=== PATIENT | female | born 1960 | race Caucasian/White ===

== ENCOUNTER → 2017-11-10 13:06 | Outpatient (CLI) | payer BC, SELFPAY ==
--- NOTE | 2017-11-10 | XR_ITS ---
XR hand RT min 3V Ordering Physician: Trenton Morales MD Patient Age: 57 years: Female HISTORY: ITS.REASON: INJURY TO RIGHT HAND Fall injury bruising third metacarpal and third phalanx. TECHNIQUE: 3 views right hand COMPARISON :None available FINDINGS Right hand intact with no fracture or nor dislocation. Borderline narrowing is seen at the PIP and DIP joints joint of the third and fourth and fifth fingers. . Metacarpals intact. MCP joints intact. No erosions. Bones well mineralized. . If there is pain at the right wrist I would suggest a dedicated right wrist series. I suspect current appearance is due to projection but difficult to exclude proximal position of the pisiform bone or variation/ & irregularity in the triquetrum posterior. IMPRESSION: - Right hand intact. No acute fracture or findings. Borderline narrowing DIP and PIP joints of the third fourth and fifth fingers. These images were designed evaluate the right hand and with this there is slight distortion at the wrist. However if pain at the wrist suggest dedicated right wrist series.
== END ==
PROVIDERS: PCP Internal Medicine Adolescent Medicine; Visit Provider Internal Medicine Adolescent Medicine
DX: S69.81XA Other specified injuries of right wrist, hand and finger(s), initial encounter (principal)
CPT/HCPCS: 73130

== ENCOUNTER → 2018-03-03 22:01 | Outpatient (CLI) | payer BC, SELFPAY ==
--- NOTE | 2018-03-03 23:15 | XR_ITS ---
XR elbow LT min 3V HISTORY: Posttraumatic pain ITS.REASON: SP FALL PAIN LEFT ELBOW ORDERING PHYSICIAN: Trenton Morales MD PATIENT AGE: 57 years COMPARISON: None FINDINGS: No fracture or dislocation. No displaced fat pad. Minimal hypertrophic changes are present coronoid process. IMPRESSION: No acute finding
== END ==
PROVIDERS: PCP Internal Medicine Adolescent Medicine; Visit Provider Internal Medicine Adolescent Medicine
DX: M25.522 Pain in left elbow (principal)
CPT/HCPCS: 73080

== ENCOUNTER → 2018-03-17 22:10 | Outpatient (CLI) | payer BC, SELFPAY ==
--- NOTE | 2018-03-17 | XR_ITS ---
XR chest 2V HISTORY: ITS.REASON: COUGH, SOB ORDERING PHYSICIAN: Antonio Garcia MD PATIENT AGE: 57 years COMPARISON: 02/06/2016 FINDINGS: The cardiomediastinal silhouette and pulmonary vascularity are within normal limits. The lungs are clear without infiltrates, suspicious nodules, or pleural effusions. No acute bony abnormalities. IMPRESSION: Negative chest, no acute finding
== END ==
PROVIDERS: PCP Internal Medicine Adolescent Medicine; Visit Provider Emergency Medicine
DX: R05 Cough (principal); R06.02 Shortness of breath
CPT/HCPCS: 71046

== ENCOUNTER → 2018-04-09 02:57 | Outpatient (CLI) | payer BC, SELFPAY ==
[2018-04-09 03:53] LABS: Anion Gap 10.3 mEq/L (5-15); Blood Urea Nitrogen 14 mg/dL (7-18); Calcium 8.8 mg/dL (8.5-10.1); Carbon Dioxide 26 mmol/L (21.0-32.0); Chloride 97 mmol/L (98-107); Creatinine,Serum 0.88 mg/dL (0.55-1.02); Estimated Glomerular Filt Rate 66 ml/min (>60); GFR (African American) 80 ML/MIN (>60); Glucose 77 mg/dL (74-106); Potassium 3.3 mmoL/L (3.5-5.1); Sodium 130 mmol/L (136-145)
[2018-04-10 09:11] LABS: Vitamin D 25 Hydroxy 34.6 ng/mL (30.0-100.0)
[2018-04-11 11:59] LABS: Vitamin B12 461 pg/mL (232-1245)
== END ==
PROVIDERS: Nurse Practitioner Family; PCP Internal Medicine Adolescent Medicine; Visit Provider Internal Medicine Adolescent Medicine
DX: R25.2 Cramp and spasm (principal); R53.83 Other fatigue
CPT/HCPCS: 36415; 80048; 82607; 82652; 83735

== ENCOUNTER → 2018-04-24 10:44 | Outpatient (CLI) | payer BC, SELFPAY ==
[2018-04-24 12:58] LABS: Anion Gap 11.8 mEq/L (5-15); Blood Urea Nitrogen 12 mg/dL (7-18); Carbon Dioxide 25 mmol/L (21.0-32.0); Chloride 102 mmol/L (98-107); Creatinine,Serum 0.74 mg/dL (0.55-1.02); Potassium 3.8 mmoL/L (3.5-5.1); Sodium 135 mmol/L (136-145)
[2018-04-24 12:59] LABS: Calcium 9.1 mg/dL (8.5-10.1); Estimated Glomerular Filt Rate 80 ml/min (>60); GFR (African American) 97 ML/MIN (>60); Glucose 84 mg/dL (74-106)
== END ==
PROVIDERS: Visit Provider Nurse Practitioner Family
DX: R35.0 Frequency of micturition (principal); E87.6 Hypokalemia
CPT/HCPCS: 36415; 80048; 87086; 87088; 87186

== ENCOUNTER → 2019-01-26 08:58 | Outpatient (CLI) | payer BC, SELFPAY ==
[2019-01-26 09:01] LABS: Adenovirus F 40/41, stool Not Detected (NotDetected); Campylobacter Not Detected (NotDetected); Clostridium Difficile A/B, PCR Not Detected (NotDetected); Cryptosporidium Not Detected (NotDetected); Cyclospora Cayetanesis Not Detected (NotDetected); Entamoeba histolytica Not Detected (NotDetected); Enteroaggregative E coli Not Detected (NotDetected); Enteropathogenic E coli Not Detected (NotDetected); Enterotoxigenic E coli Not Detected (NotDetected); Giardia lamblia Not Detected (NotDetected); Norovirus Not Detected (NotDetected); Plesimonas Shigalloides, PCR Not Detected (NotDetected); Rotavirus A Not Detected (NotDetected); Salmonella, PCR Not Detected (NotDetected); Sapovirus Not Detected (NotDetected); Shiga-like toxin E coli Not Detected (NotDetected); Shigella Enterovasive E coli Not Detected (NotDetected); Vibrio Cholerae Not Detected (NotDetected); Vibrio, PCR Not Detected (NotDetected); Yersinia Entercolitica, PCR Not Detected (NotDetected)
[2019-01-26 10:17] LABS: Basophils % 0.4 % (0.1-2.0); Eosinophils # 0.1 K/mm3 (0.0-0.4); Eosinophils % 1.8 % (0.1-12.0); Hematocrit 38.9 % (37.0-47.0); Hemoglobin 13.1 g/dL (12.2-16.2); Lymphocytes # 2.2 K/mm3 (0.7-4.5); Lymphocytes % 48.2 % (10-50); Mean Corpuscular HGB Conc 33.7 g/dL (31.8-35.4); Mean Corpuscular Hemoglobin 28.8 pg (27.0-31.2); Mean Corpuscular Volume 85.3 fl (81-99); Monocytes # 0.5 K/mm3 (0.1-1.0); Monocytes % 9.9 % (1.7-9.3); Neutrophils # 1.9 K/mm3 (1.8-7.8); Neutrophils % 39.8 % (37.0-80.0); Platelet Count 325 K/mm3 (142-424); Red Blood Count 4.56 M/mm3 (4.20-5.40); Red Cell Distribution Width 13.4 % (11.5-17.5); White Blood Count 4.7 K/mm3 (4.8-10.8)
[2019-01-26 11:01] LABS: Alanine Aminotransferase 30 U/L (12-78); Albumin/Globulin Ratio 1.2 (1.1-1.8); Alkaline Phosphatase 91 U/L (46-116); Anion Gap 13.9 mEq/L (5-15); Aspartate Amino Transferase 22 U/L (15-37); Bilirubin,Total 0.6 mg/dL (0.2-1.0); Blood Urea Nitrogen 9 mg/dL (7-18); Carbon Dioxide 26 mmol/L (21.0-32.0); Chloride 103 mmol/L (98-107); Creatinine,Serum 0.81 mg/dL (0.55-1.02); Estimated Glomerular Filt Rate 72 ml/min (>60); GFR (African American) 87 ML/MIN (>60); Globulin 3.3 gm/dl (1.3-3.2); Glucose 82 mg/dL (74-106); Potassium 3.9 mmoL/L (3.5-5.1); Sodium 139 mmol/L (136-145); Total Protein,Serum 7.3 gm/dL (6.4-8.2)
[2019-01-26 13:37] LABS: Astrovirus Detected (NotDetected)
== END ==
PROVIDERS: Visit Provider Nurse Practitioner Family
DX: R19.7 Diarrhea, unspecified (principal); Z87.19 Personal history of other diseases of the digestive system
CPT/HCPCS: 36415; 80053; 85025; 87507

== ENCOUNTER 2019-01-28 03:39 | Observation (INO) ==
[2019-01-28 04:16] LABS: Basophils % 0.3 % (0.1-2.0); Eosinophils # 0.2 K/mm3 (0.0-0.4); Eosinophils % 2.9 % (0.1-12.0); Hematocrit 35.3 % (37.0-47.0); Hemoglobin 11.7 g/dL (12.2-16.2); Lymphocytes % 53.1 % (10-50); Mean Corpuscular HGB Conc 33.3 g/dL (31.8-35.4); Mean Corpuscular Hemoglobin 28.4 pg (27.0-31.2); Mean Corpuscular Volume 85.4 fl (81-99); Monocytes # 0.3 K/mm3 (0.1-1.0); Monocytes % 5.9 % (1.7-9.3); Neutrophils # 2.1 K/mm3 (1.8-7.8); Neutrophils % 37.8 % (37.0-80.0); Platelet Count 312 K/mm3 (142-424); Red Blood Count 4.13 M/mm3 (4.20-5.40); Red Cell Distribution Width 13.3 % (11.5-17.5); White Blood Count 5.7 K/mm3 (4.8-10.8)
[2019-01-28 04:29] LABS: Albumin Level 3.9 gm/dL (3.4-5.0); Albumin/Globulin Ratio 1.1 (1.1-1.8); Bilirubin,Total 0.4 mg/dL (0.2-1.0); C-Reactive Protein 1.3 mg/L (0.0-0.9); Calcium 8.3 mg/dL (8.5-10.1); Globulin 3.6 gm/dl (1.3-3.2); Total Protein,Serum 7.5 gm/dL (6.4-8.2)
[2019-01-28 04:45] LABS: Microscopic, Urine URINE MICROSCOPIC (MICROSCOPIC)
[2019-01-28 04:46] LABS: Appearance,Urine CLEAR (Clear); Bilirubin,Urine Negative (Negative); Blood, Urine Negative (Negative); Color,Urine ORANGE (Yellow); Glucose,Urine (UA) TRACE (Negative); Ketones,Urine TRACE (Negative); Leukocyte Esterase,Urine TRACE (Negative); Protein,Urine 2+ (Negative); Specific Gravity, Urine 1.015 (1.005-1.030); Urobilinogen,Urine >=8.0 EU/dl (0.2)
--- NOTE | 2019-01-28 04:48 | Emergency Department Note ---
ED Disposition Clinical Impression: Enteritis, Hypokalemia Disposition: Admitted as Observation Condition on Discharge: Good Instructions: DI for Diarrhea and Traveler's Diarrhea -- Adult, DI for Diarrhea and Traveler's Diarrhea -- Child, DI for Nausea -- Adult, DI for Nausea -- Child Referrals: Trenton Morales MD [Primary Care Provider] - - Critical Care Critical Care Time: No Attestation: On 01/28/19, the high probability of a clinically significant, sudden or life threatening deterioration of the following system(s) required my full and direct attention, intervention and personal management. The time I documented below is in addition to time spent performing reported procedures but includes the following listed in this critical care notation. Medical Decision Making - Medical Records Medical records reviewed: Yes: I reviewed the patient's medical records. - Al Inquiry Pt receiving controlled substance: No Vital Signs: 01/28/19 03:47 01/28/19 04:44 01/28/19 06:00 Temperature 98.2 F Temperature Source Oral Pulse Rate [Right Brachial] 86 70 79 Respiratory Rate 15 12 Blood Pressure [Right Arm] 112/45 L 137/70 148/75 H Blood Pressure Mean [Right Arm] 67 92 99 Blood Pressure Source [Right Arm] Automatic Cuff Automatic Cuff Blood Pressure Position [Right Arm] Sitting Supine 02 Sat by Pulse Oximetry 96 96 97 Oxygen Delivery Method Room Air Room Air 01/28/19 07:51 Temperature Temperature Source Pulse Rate [Right Brachial] 93 H Respiratory Rate 16 Blood Pressure [Right Arm] 119/57 L Blood Pressure Mean [Right Arm] 77 Blood Pressure Source [Right Arm] Automatic Cuff Blood Pressure Position [Right Arm] Supine 02 Sat by Pulse Oximetry 96 Oxygen Delivery Method - Lab Data Lab results reviewed: Yes: I reviewed the patient's lab results. Lab Results 01/28/19 04:00: WBC 5.7, RBC 4.13 L, Hgb 11.7 L, Hct 35.3 L, MCV 85.4, MCH 28.4, MCHC 33.3, RDW 13.3, Plt Count 312, MPV 7.0 L, Neut % (Auto) 37.8, Lymph % (Auto) 53.1 H, [place] % (Auto) 5.9, Eos % (Auto) 2.9, Baso % (Auto) 0.3, Neut # (Auto) 2.1, Lymph # (Auto) 3.0, [place] # (Auto) 0.3, Eos # (Auto) 0.2, Baso # (Auto) 0.0, Total Counted 100, Neutrophils % (Manual) 44, Lymphocytes % (Manual) 53 H, Eosinophils % (Manual) 2, Basophils % (Manual) 1.0, Platelet Estimate Normal, RBC Morphology Normal, ESR 15 01/28/19 04:00: Sodium 138, Potassium 3.0 L, Chloride 105, Carbon Dioxide 24, Anion Gap 12.0, BUN 10, Creatinine 0.84, Estimated Creat Clear 81, Estimated GFR 69, Est GFR ( Amer) 84, Glucose 91, Calcium 8.3 L, Total Bilirubin 0.4, AST 39 H D, ALT 57 D, Alkaline Phosphatase 97, C-Reactive Protein 1.3 H, Total Protein 7.5, Albumin 3.9, Globulin 3.6 H, Albumin/Globulin Ratio 1.1, Amylase 54, Lipase 140 01/28/19 04:00: Lactate 0.6 01/28/19 04:40: Urine Color [place], Urine Appearance Clear, Urine pH 5.0, Ur Specific [place] 1.015, Urine Protein 2+, Urine Glucose (UA) Trace, Urine Ketones Trace, Urine Blood Negative, Urine Nitrate Positive, Urine Bilirubin Negative, Urine Urobilinogen >=8.0, Ur Leukocyte Esterase Trace, Urine RBC Occasional, Urine WBC 3-5, Ur Squamous Epith Cells 3-5, Urine Bacteria 1+ Result diagrams: 01/28/19 04:00 01/28/19 04:00 Orders (Tests/Meds): ED MEDICATIONS Discontinued Medications Generic Name Dose Route Start Last Admin Trade Name Jacquelin PRN Reason Stop Dose Admin Sodium Chloride 1,000 mls @ 999 mls/hr 01/28/19 04:00 01/28/19 04:14 Sod Chlor 0.9% 1000ml Bag IV 01/28/19 05:00 999 mls/hr .Q1H1M DELROY Administration Sodium Chloride 1,000 mls @ 999 mls/hr 01/28/19 06:00 01/28/19 05:53 Sod Chlor 0.9% 1000ml Bag IV 01/28/19 07:00 999 mls/hr .Q1H1M DELROY Administration Ioversol 75 ml 01/28/19 06:25 01/28/19 06:27 Rad-Optiray 350 100ml Vial IV 01/28/19 06:26 75 ml ONCE ONE Administration Protocol Ketorolac Tromethamine 30 mg 01/28/19 04:26 01/28/19 04:28 Toradol 30mg/Ml Vial IV 01/28/19 04:27 30 mg ONCE ONE Administration Morphine Sulfate 4 mg 01/28/19 06:32 01/28/19 06:42 Morphine 4mg/Ml Syringe IV 01/28/19 06:33 4 mg ONCE ONE Administration Ondansetron HCl 4 mg 01/28/19 04:13 01/28/19 04:14 Zofran 4mg/2ml Vial IV 01/28/19 04:14 4 mg ONCE ONE Administration Ondansetron HCl 4 mg 01/28/19 06:32 01/28/19 06:42 Zofran 4mg/2ml Vial IV 01/28/19 06:33 4 mg ONCE ONE Administration Sodium Chloride 10 ml 01/28/19 06:25 01/28/19 06:27 Rad-Saline Flush 10ml Syringe IV 01/28/19 06:26 10 ml ONCE ONE Administration ORDERS Category Date Time Status Diarrhea 23 Panel, PCR Stat Lab 01/28/19 03:57 Ordered Blood Culture Stat Micro 01/28/19 04:00 Received - CT Data CT Scan: Abdomen, Pelvis Time Received: 07:[address] Reviewed: Yes: I have viewed the radiologist's interpretation Preliminary Findings: Normal/NAD - Physician Consults Physician Consulted: mary Reason -: Admission Nausea/Vomiting/Diarrhea HPI - General Chief complaint: Nausea/Vomiting/Diarrhea Stated complaint: watery diarrhea X4days Time Seen by Provider: 01/28/19 04:46 Mode of Arrival: Ambulatory Source of Information: Patient, Medical Record Limitations: No Limitations Description of Symptoms (Recalled from ER Triage Doc. by RN): diarrhea since saturday, went to primary care provider on saturday and pt reports astrovirus. pt c/o nausea and no vomiting. abdominal cramping - History of Present Illness HPI Narrative: diarrhea with crampy abd pain with known mariza virus infection MD complaint: nausea, diarrhea, abdominal pain Onset (ago): day(s) Associated Abdominal Pain: Yes Location of pain: periumbilical Associated symptoms: denies other symptoms - Related Data Home Medications Medication Instructions Recorded Confirmed conjugated estrogens 0.625 mg 0.625 mg PO DAILY 90 Days #90 tab 06/25/18 01/28/19 tablet omeprazole 20 mg capsule,delayed 20 mg PO DAILY 90 Days #90 cap 06/25/18 01/28/19 release potassium chloride ER 10 mEq 10 meq PO DAILY 30 Days #30 tab 06/25/18 01/28/19 tablet,extended release sertraline 100 mg tablet 100 mg PO DAILY 90 Days #90 tab 06/25/18 01/28/19 tolterodine ER 4 mg 4 mg PO HS 90 Days #90 cap 06/25/18 01/28/19 capsule,extended release 24 hr Lidocaine [Topicaine] 1 applic TOPICAL BID 06/30/18 01/28/19 Dicyclomine HCl [Bentyl 10mg 10 mg PO DAILY 01/28/19 01/28/19 capsule] Magnesium Oxide [Magnesium] 200 mg PO DAILY 01/28/19 01/28/19 Metoclopramide HCl [Reglan 10mg 10 mg PO DAILY 01/28/19 01/28/19 Tab] Promethazine HCl [Phenergan 25mg 25 mg PO QIDP PRN 01/28/19 01/28/19 tab] Simethicone 180 mg PO BID 01/28/19 01/28/19 Allergies Allergy/AdvReac Type Severity Reaction Status Date / Time gentamicin [GENTAMICIN] Allergy Intermediate I-RASH Verified 06/30/18 06:12 erythromycin base Allergy Unknown Verified 06/30/18 06:12 [From Tee-Tab] Sulfa (Sulfonamide Allergy Unknown Verified 06/30/18 06:12 Antibiotics) trimethoprim Allergy Unknown Verified 06/30/18 06:12 latex Allergy Verified 06/30/18 06:19 Penicillins Allergy Verified 06/30/18 06:12 [facility] History - Hepatitis A Screen Drug use history?: No High risk sexual behaviors?: No History of sexually transmitted infection?: No Currently employed?: No Childcare worker?: No Do you have indoor plumbing?: Yes Do you have electricity?: Yes Attestation statement:: This patient has been screened for Hepatitis A risk factors. I have reviewed the patient's past medical history: Yes Medical History: Reports:: Gastroesophageal Reflux Disease(GERD), Hyperlipidemia, Kidney Stones Other Medical History: Reports: Fibromyalgia Other Surgeries: Yes: Hysterectomy-Total, Tubal Ligation, Other Amputation: No Fractures: No - Social History Smoking Status: Former smoker Alcohol Intake: never Substance Use Type: denies use Occupational Status: employed Housing: house - Psychiatric History Expresses thoughts of harming self/others: None Suicide Plan Description: No Plan Family Hx:: Cancer, Hypertension, Coronary Artery Disease, Heart Attack Comment: Father-[place] at 64 ROS Obtained: Yes All systems reviewed & no additional complaints - Constitutional Constitutional: Denies fever(s) - Eyes Eyes: Denies change in vision - ENT Ears, Nose, Mouth, and Throat: Denies sinus pain - Cardiovascular Cardiovascular: Denies chest pain - Respiratory Respiratory: No cough - Gastrointestinal Gastrointestingal: Reports: diarrhea. Denies: abdominal pain, vomiting - Genitourinary Female Genitourinary: Denies hematuria - Musculoskeletal Musculoskeletal: Denies joint pain - Integumentary/Breasts Skin/Breast: Denies rash - Neurologic Neurologic: Denies seizure-like activity Physical Exam - General General appearance: in no apparent distress - Head Head exam: normocephalic - Eye Eye exam: Present: PERRL, EOMI. Absent: scleral icterus - ENT ENT exam: Present: mucous membranes dry - Neck Neck exam: Present: trachea midline - Respiratory Respiratory exam: Absent: respiratory distress - Cardiovascular Cardiovascular exam: Present: regular rate - Abdominal Exam Abdominal exam: Present: soft, tenderness - Extremities Exam Extremities exam: Absent: calf tenderness - Neurological Exam Neurological exam: Present: alert, CN II-XII intact - Psychiatric Psychiatric exam: Present: normal affect - Skin Skin exam: Absent: rash
[2019-01-28 05:27] LABS: Erythrocyte Sedimentation Rate 15 mm/hr (0-30)
[2019-01-28 05:33] LABS: Eosinophils % 2 % (0-3); Lymphocytes % 53 % (10-50); Neutrophils % 44 % (42-76); RBC Morphology Normal; Total Cells Counted 100
[2019-01-28 05:34] LABS: Bacteria,Urine 1+ /lpf; RBC,Urine Occasional #/hpf (0-3)
--- NOTE | 2019-01-28 14:57 | Pharmacy Consult Notes ---
[facility] Pharmacy VTE Monitoring - Patient Demographics Admission date: 01/28/19 Report Date: 01/28/19 Time: 14:56 Allergies/Adverse Reactions: Patient Allergies gentamicin [GENTAMICIN] Allergy (Intermediate, Verified 06/30/18 06:12) I-RASH erythromycin base [From Tee-Tab] Allergy (Unknown, Verified 06/30/18 06:12) Sulfa (Sulfonamide Antibiotics) Allergy (Unknown, Verified 06/30/18 06:12) trimethoprim Allergy (Unknown, Verified 06/30/18 06:12) latex Allergy (Verified 06/30/18:19) Penicillins Allergy (Verified 06/30/18 06:12) Height: 1.63 m Weight: 75.098 kg Patient Problems: Current Active Problems (Updated 01/28/19 @ 08:47 by Antonio Garcia MD) Enteritis (Acute) Hypokalemia (Acute) - VTE Risk Labs: VTE Related Lab Results Hgb 11.7 g/dL (12.2-16.2) L 01/28/19 04:00 Hct 35.3 % (37.0-47.0) L 01/28/19 04:00 Plt Count 312 K/mm3 (142-424) 01/28/19 04:00 BUN 10 mg/dL (7-18) 01/28/19 04:00 Creatinine 0.84 mg/dL (0.55-1.02) 01/28/19 04:00 Estimated Creat Clear 81 mL/min (50-200) 01/28/19 04:00 Was VTE Risk Assessment Performed: Yes VTE Score: 2 VTE Risk Level: Very Low Risk - Prophylaxis Types of VTE Prophylaxis: TEDS Knee High (RICHARD HOSE ORDERED)
--- NOTE | 2019-01-28 18:05 | History & Physical Report ---
*Admission Date: 01/28/19 *Chief complaint: Nausea/vomiting/diarrhea *History of present illness: 58-year-old white female with multiple medical problems including chronic interstitial cystitis who came to the emergency department with several hours of nausea with uncontrollable diarrhea. In the ER she was found to be hypokalemic. Admitted to hospital for IV fluids and further supportive care. [facility] History I have reviewed the patient's past medical history: Yes Medical History: Reports:: Gastroesophageal Reflux Disease(GERD), Hyperlipidemia, Kidney Stones *Have you ever received a pneumonia vaccine?: No *Have you received a flu vaccine this season?: Yes Other Medical History: Reports: Fibromyalgia Other Surgeries: Yes: Hysterectomy-Total, Tubal Ligation, Other Amputation: No Fractures: No - *Social History Educational Level: Completed College Smoking Status: Former smoker Alcohol Intake: current Alcohol Intake Frequency:: holidays/special occasions only Substance Use Type: denies use *Occupational Status:: employed Housing: house Household Members: spouse *Travel in the last 8 weeks: None - Psychiatric History Expresses thoughts of harming self/others: None Suicide Plan Description: No Plan Family Hx:: Cancer, Hypertension, Coronary Artery Disease, Heart Attack Review of Systems - Review of Systems Review of systems:: pertinent systems reviewed and negative unless documented below - Constitutional Reports anorexia, Reports fatigue, Reports fever(s) - Eyes Denies blind spots, Denies blurry vision, Denies change in vision - ENT Reports dizziness, Denies bleeding gums, Denies dry mouth - *Cardiovascular Denies chest pain, Denies excessive sweating, Denies shortness of breath, Denies irregular heart rhythm - *Respiratory Denies change in phlegm color, Denies chest congestion, Denies cough, Denies shortness of breath - *Gastrointestinal Reports abdominal pain, Reports incontinent of stools, Denies vomiting blood, De nies bright, red blood in stools - *Genitourinary Denies abnormal periods - *Musculoskeletal Denies abnormal walking - Integumentary/Breasts Denies change in skin color, Denies changing lesions, Denies yellowing of the skin - *Neurologic Denies abnormal walking, Denies seizure-like activity Meds Home Medications Medication Instructions Recorded Confirmed Type conjugated estrogens 0.625 mg 0.625 mg PO DAILY 90 Days #90 tab 06/25/18 01/28/19 History tablet omeprazole 20 mg capsule,delayed 20 mg PO DAILY 90 Days #90 cap 06/25/18 01/28/19 History release potassium chloride ER 10 mEq 10 meq PO DAILY 30 Days #30 tab 06/25/18 01/28/19 History tablet,extended release sertraline 100 mg tablet 100 mg PO DAILY 90 Days #90 tab 06/25/18 01/28/19 History Albuterol Sulfate [Proair Hfa 2 puffs IH TID PRN 01/28/19 01/28/19 History 90mcg/puff Inh] Amitriptyline HCl [Elavil 10mg 10 mg PO HS 01/28/19 01/28/19 History tablet] Amitriptyline HCl [Elavil 25mg 25 mg PO HS 01/28/19 01/28/19 History tablet] Cetirizine HCl 10 mg PO DAILY 01/28/19 01/28/19 History Dicyclomine HCl 20 mg PO QID 01/28/19 01/28/19 History Hydrocodone/Ibuprofen 1 - 2 each PO BID PRN 01/28/19 01/28/19 History [Hydrocodone-Ibuprofen 7.5-200] Lidocaine HCl [Lidocaine 2% jelly 1 each TP BID 01/28/19 01/28/19 History 5mL tube] Magnesium Oxide [Mag-Ox 400mg Tab] 400 mg PO DAILY 01/28/19 01/28/19 History Metoclopramide HCl [Reglan 10mg 10 mg PO DAILY 01/28/19 01/28/19 History Tab] Multivitamin [Multivitamins] 1 each PO DAILY 01/28/19 01/28/19 History Phenazopyridine HCl [Pyridium 200 mg PO TID 01/28/19 01/28/19 History 200mg Tablet] Promethazine HCl [Phenergan 25mg 25 mg PO Q6HP PRN 01/28/19 01/28/19 History tab] Simethicone 180 mg PO BID 01/28/19 01/28/19 History Temazepam [Restoril] 30 mg PO HS PRN 01/28/19 01/28/19 History Tolterodine Tartrate [Detrol LA] 4 mg PO DAILY 01/28/19 01/28/19 History Allergies Allergy/AdvReac Type Severity Reaction Status Date / Time gentamicin [GENTAMICIN] Allergy Intermediate I-RASH Verified 06/30/18 06:12 erythromycin base Allergy Unknown Verified 06/30/18 06:12 [From Tee-Tab] Sulfa (Sulfonamide Allergy Unknown Verified 06/30/18 06:12 Antibiotics) trimethoprim Allergy Unknown Verified 06/30/18 06:12 latex Allergy Verified 06/30/18 06:19 Penicillins Allergy Verified 06/30/18 06:12 Exam Vital signs and Labs for Last 24 Hours: Temp Pulse Resp BP Pulse Ox 98.0 F 63 16 122/58 L 94 L 01/28/19 16:00 01/28/19 16:00 01/28/19 16:00 01/28/19 16:00 01/28/19 16:00 Laboratory Results - last 24 hr 01/28/19 04:00: WBC 5.7, RBC 4.13 L, Hgb 11.7 L, Hct 35.3 L, MCV 85.4, MCH 28.4, MCHC 33.3, RDW 13.3, Plt Count 312, MPV 7.0 L, Neut % (Auto) 37.8, Lymph % (Auto) 53.1 H, [place] % (Auto) 5.9, Eos % (Auto) 2.9, Baso % (Auto) 0.3, Neut # (Auto) 2.1, Lymph # (Auto) 3.0, [place] # (Auto) 0.3, Eos # (Auto) 0.2, Baso # (Auto) 0.0, Total Counted 100, Neutrophils % (Manual) 44, Lymphocytes % (Manual) 53 H, Eosinophils % (Manual) 2, Basophils % (Manual) 1.0, Platelet Estimate Normal, RBC Morphology Normal, ESR 15 01/28/19 04:00: Sodium 138, Potassium 3.0 L, Chloride 105, Carbon Dioxide 24, Anion Gap 12.0, BUN 10, Creatinine 0.84, Estimated Creat Clear 81, Estimated GFR 69, Est GFR ( Amer) 84, Glucose 91, Calcium 8.3 L, Total Bilirubin 0.4, AST 39 H D, ALT 57 D, Alkaline Phosphatase 97, C-Reactive Protein 1.3 H, Total Protein 7.5, Albumin 3.9, Globulin 3.6 H, Albumin/Globulin Ratio 1.1, Amylase 54, Lipase 140 01/28/19 04:00: Lactate 0.6 01/28/19 04:40: Urine Color [place], Urine Appearance Clear, Urine pH 5.0, Ur Specific [place] 1.015, Urine Protein 2+, Urine Glucose (UA) Trace, Urine Ketones Trace, Urine Blood Negative, Urine Nitrate Positive, Urine Bilirubin Negative, Urine Urobilinogen >=8.0, Ur Leukocyte Esterase Trace, Urine RBC Occasional, Urine WBC 3-5, Ur Squamous Epith Cells 3-5, Urine Bacteria 1+ I & O for Last 24 hours: Intake & Output 01/26/19 01/27/19 01/28/19 01/29/19 11:59 11:59 11:59 11:59 Intake Total 1000 / 1000 240 / 240 Balance 1000 / 1000 240 / 240 Weight 165 lb 9 oz Narrative: Patient appears weak. Is alert, however and oriented. Vital signs normalized since admission. No scleral icterus. Oropharynx clear. No JVD. Lungs have good air movement. Abdomen soft, minimally tender in the left lateral/lower quadrant. No CVA tenderness. Suprapubic tenderness noted. No extremity clubbing or edema, extremities warm and well-perfused. Assessment and Plan (1) Urinary tract infection Current visit: Yes Status: Acute Category: Medical Code(s): N39.0 - Urinary tract infection, site not specified Treat with Levaquin, check culture. Given history of cystitis will need to follow with urology (2) Enteritis Current visit: Yes Status: Acute Category: Medical Code(s): K52.9 - Noninfective gastroenteritis and colitis, unspecified Improved with IV fluids. (3) Hypokalemia Current visit: Yes Status: Acute Category: Medical Code(s): E87.6 - Hypokalemia Fluid support, advance diet, check tomorrow morning
[2019-01-29 06:53] LABS: Anion Gap 10.5 mEq/L (5-15); Potassium 3.5 mmoL/L (3.5-5.1)
[2019-01-29 07:01] LABS: Basophils % 0.5 % (0.1-2.0); Eosinophils # 0.2 K/mm3 (0.0-0.4); Eosinophils % 4.2 % (0.1-12.0); Hemoglobin 10.5 g/dL (12.2-16.2); Lymphocytes # 2.8 K/mm3 (0.7-4.5); Lymphocytes % 67.6 % (10-50); Mean Corpuscular HGB Conc 32.9 g/dL (31.8-35.4); Mean Corpuscular Hemoglobin 28.8 pg (27.0-31.2); Mean Corpuscular Volume 87.7 fl (81-99); Mean Platelet Volume 7.1 fl (7.4-10.4); Monocytes # 0.2 K/mm3 (0.1-1.0); Monocytes % 4.3 % (1.7-9.3); Neutrophils % 23.3 % (37.0-80.0); Platelet Count 274 K/mm3 (142-424); Red Blood Count 3.65 M/mm3 (4.20-5.40); Red Cell Distribution Width 13.4 % (11.5-17.5); White Blood Count 4.1 K/mm3 (4.8-10.8)
[2019-01-29 10:55] LABS: Lymphocytes % 62 % (10-50); Monocytes % 4 % (2-9); Neutrophils % 34 % (42-76); RBC Morphology Normal; Total Cells Counted 100
--- NOTE | 2019-01-29 13:21 | Consult Report ---
*Admission Date: 01/28/19 *Chief complaint: Bladder pain *History of present illness: Patient is a 58-year-old white female with a history of interstitial cystitis. She has been treated by Dr. Belle in the past. She was admitted to the hospital with diarrhea and is currently undergoing work-up. She is a nurse here at the hospital. She states that her bladder symptoms are controlled with Pyridium and Detrol. We discussed other adjunctive therapy including diet and she was not aware of dietary restrictions such as caffeine, spicy foods and vitamin C products. 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 [facility] History Medical History: Reports:: Gastroesophageal Reflux Disease(GERD), Hyperlipidemia, Kidney Stones *Have you ever received a pneumonia vaccine?: No *Have you received a flu vaccine this season?: Yes Other Medical History: Reports: Fibromyalgia Other Surgeries: Yes: Hysterectomy-Total, Tubal Ligation, Other Amputation: No Fractures: No - *Social History Educational Level: Completed College Smoking Status: Former smoker Alcohol Intake: current Alcohol Intake Frequency:: holidays/special occasions only Substance Use Type: denies use *Occupational Status:: employed Housing: house Household Members: spouse *Travel in the last 8 weeks: None - Psychiatric History Expresses thoughts of harming self/others: None Suicide Plan Description: No Plan Family Hx:: Cancer, Hypertension, Coronary Artery Disease, Heart Attack Review of Systems - Review of Systems Review of systems:: pertinent systems reviewed and negative unless documented below - *Neurologic Reports dizziness, Denies abnormal walking, Denies seizure-like activity Meds Home Medications Medication Instructions Recorded Confirmed Type conjugated estrogens 0.625 mg 0.625 mg PO DAILY 90 Days #90 tab 06/25/18 01/28/19 History tablet omeprazole 20 mg capsule,delayed 20 mg PO DAILY 90 Days #90 cap 06/25/18 01/28/19 History release potassium chloride ER 10 mEq 10 meq PO DAILY 30 Days #30 tab 06/25/18 01/28/19 History tablet,extended release sertraline 100 mg tablet 100 mg PO DAILY 90 Days #90 tab 06/25/18 01/28/19 History Albuterol Sulfate [Proair Hfa 2 puffs IH TID PRN 01/28/19 01/28/19 History 90mcg/puff Inh] Amitriptyline HCl [Elavil 10mg 10 mg PO HS 01/28/19 01/28/19 History tablet] Amitriptyline HCl [Elavil 25mg 25 mg PO HS 01/28/19 01/28/19 History tablet] Cetirizine HCl 10 mg PO DAILY 01/28/19 01/28/19 History Dicyclomine HCl 20 mg PO QID 01/28/19 01/28/19 History Hydrocodone/Ibuprofen 1 - 2 each PO BID PRN 01/28/19 01/28/19 History [Hydrocodone-Ibuprofen 7.5-200] Lidocaine HCl [Lidocaine 2% jelly 1 each TP BID 01/28/19 01/28/19 History 5mL tube] Magnesium Oxide [Mag-Ox 400mg Tab] 400 mg PO DAILY 01/28/19 01/28/19 History Metoclopramide HCl [Reglan 10mg 10 mg PO DAILY 01/28/19 01/28/19 History Tab] Multivitamin [Multivitamins] 1 each PO DAILY 01/28/19 01/28/19 History Phenazopyridine HCl [Pyridium 200 mg PO TID 01/28/19 01/28/19 History 200mg Tablet] Promethazine HCl [Phenergan 25mg 25 mg PO Q6HP PRN 01/28/19 01/28/19 History tab] Simethicone 180 mg PO BID 01/28/19 01/28/19 History Temazepam [Restoril] 30 mg PO HS PRN 01/28/19 01/28/19 History Tolterodine Tartrate [Detrol LA] 4 mg PO DAILY 01/28/19 01/28/19 History Allergies Allergy/AdvReac Type Severity Reaction Status Date / Time gentamicin [GENTAMICIN] Allergy Intermediate I-RASH Verified 06/30/18 06:12 erythromycin base Allergy Unknown Verified 06/30/18 06:12 [From Tee-Tab] Sulfa (Sulfonamide Allergy Unknown Verified 06/30/18 06:12 Antibiotics) trimethoprim Allergy Unknown Verified 06/30/18 06:12 latex Allergy Verified 06/30/18 06:19 Penicillins Allergy Verified 06/30/18 06:12 Exam Vital signs and Labs for Last 24 Hours: Temp Pulse Resp BP Pulse Ox 98.1 F 69 16 119/68 94 L 01/29/19 08:00 01/29/19 08:00 01/29/19 08:00 01/29/19 08:00 01/29/19 08:00 Laboratory Results - last 24 hr 01/29/19 05:35: WBC 4.1 L D, RBC 3.65 L, Hgb 10.5 L, Hct 32.0 L, MCV 87.7, MCH 28.8, MCHC 32.9, RDW 13.4, Plt Count 274, MPV 7.1 L, Neut % (Auto) 23.3 L, Lymph % (Auto) 67.6 H, [place] % (Auto) 4.3, Eos % (Auto) 4.2, Baso % (Auto) 0.5, Neut # (Auto) 1.0 L, Lymph # (Auto) 2.8, [place] # (Auto) 0.2, Eos # (Auto) 0.2, Baso # (Auto) 0.0, Total Counted 100, Neutrophils % (Manual) 34 L, Lymphocytes % (Manual) 62 H, Monocytes % (Manual) 4, Platelet Estimate Normal, RBC Morphology Normal 01/29/19 05:35: Sodium 143, Potassium 3.5, Chloride 109 H, Carbon Dioxide 27, Anion Gap 10.5, BUN 5 L D, Creatinine 0.74, Estimated Creat Clear 96, Estimated GFR 80, Est GFR ( Amer) 97, Glucose 78, Calcium 8.0 L, Magnesium 2.0 I & O for Last 24 hours: Intake & Output 01/26/19 01/27/19 01/28/19 01/29/19 23:59 23:59 23:59 23:59 Intake Total 1732 / 1732 1377 / 1377 Output Total 800 / 1000 800 / 800 Balance 932 / 732 577 / 577 Weight 75.098 kg 74.871 kg Narrative: Well-nourished white female in no apparent distress Pupils equal round reactive to light Head normocephalic Neck supple Normal respiratory effort Abdomen normal visual inspection Alert and oriented x3 Internal Medicine - CN: Reslt - Labs CBC & Chem 7: 01/29/19 05:35 01/29/19 05:35 Labs: Short CBC 01/29/19 Range/Units 05:35 WBC 4.1 L D (4.8-10.8) K/mm3 Hgb 10.5 L (12.2-16.2) g/dL Hct 32.0 L (37.0-47.0) % Plt Count 274 (142-424) K/mm3 BMP 01/29/19 05:35 Sodium 143 Potassium 3.5 Chloride 109 H Carbon Dioxide 27 BUN 5 L D Creatinine 0.74 Glucose 78 Calcium 8.0 L Assessment and Plan (1) Urinary tract infection Current visit: Yes Status: Acute Category: Medical Code(s): N39.0 - Urinary tract infection, site not specified (2) Enteritis Current visit: Yes Status: Acute Category: Medical Code(s): K52.9 - Noninfective gastroenteritis and colitis, unspecified (3) Hypokalemia Current visit: Yes Status: Acute Category: Medical Code(s): E87.6 - Hypokalemia - Assessment and plan all Dx Assessment and Plan for all problems:: 58-year-old white female with history of interstitial cystitis. She has previously been treated by Dr. Belle and states she continues on Pyridium and Detrol. We discussed other options such as MRI on and she is not sure if she is been able to take that before. We also discussed dietary restrictions which she was not aware of. I will make an appointment to see me in the office for further education.
--- NOTE | 2019-01-29 14:08 | Discharge Summary ---
General - General Admission date:: 01/28/19 Discharge date: 01/29/19 HPI HPI: 58-year-old white female with multiple medical problems including chronic interstitial cystitis who came to the emergency department with several hours of nausea with uncontrollable diarrhea. In the ER she was found to be hypokalemic. Admitted to hospital for IV fluids and further supportive care. Hospital Course Hospital Course: Patient was admitted to [facility]. She was aggresively hydrated with IVF's. UA was + for UTI. She was started on Levaquin with improvement of symptoms. Urine culture is pending. Urology was consulted who provided dietary recommendations to help control symptoms of interstitial cystitis. Diarrhea resolved and she is tolerating oral intake well. Discharge home on levaquin with zofran PRN. See [facility] rec for complete list. FU with Dr. Morales on Saturday Objective Vital signs: Temp Pulse Resp BP Pulse Ox 98.1 F 69 16 119/68 94 L 01/29/19 08:00 01/29/19 08:00 01/29/19 08:00 01/29/19 08:00 01/29/19 08:00 Narrative: Alert and oriented x3. Rate and rhythm regular. No murmur. Abdomen soft and diffusely tender. No guarding or rebound. Lung sounds clear and equal. No CVA tenderness Results Labs on day of discharge: Labs from last 24 hours 01/29/19 01/29/19 05:35 05:35 WBC 4.1 L D RBC 3.65 L Hgb 10.5 L Hct 32.0 L MCV 87.7 MCH 28.8 MCHC 32.9 RDW 13.4 Plt Count 274 MPV 7.1 L Neut % (Auto) 23.3 L Lymph % (Auto) 67.6 H [place] % (Auto) 4.3 Eos % (Auto) 4.2 Baso % (Auto) 0.5 Neut # (Auto) 1.0 L Lymph # (Auto) 2.8 [place] # (Auto) 0.2 Eos # (Auto) 0.2 Baso # (Auto) 0.0 Total Counted 100 Neutrophils % (Manual) 34 L Lymphocytes % (Manual) 62 H Monocytes % (Manual) 4 Platelet Estimate Normal RBC Morphology Normal Sodium 143 Potassium 3.5 Chloride 109 H Carbon Dioxide 27 Anion Gap 10.5 BUN 5 L D Creatinine 0.74 Estimated Creat Clear 96 Estimated GFR 80 Est GFR ( Amer) 97 Glucose 78 Calcium 8.0 L Magnesium 2.0 DS: Diagnosis - Discharge Diagnosis (1) Urinary tract infection Status: Acute (2) Enteritis Status: Acute (3) Hypokalemia Status: Acute Discharge Plan - Patient Discharge Instructions ACTIVITY: Continue current activity DIET: other Additional Instructions: low fat, bland, no caffeine Patient Instructions: DI for Viral Gastroenteritis -- Adult, DI for Hypokalemia - Follow up Plan Follow up with: Gil Mobley MD [Staff Physician] - 02/19/19 11:30 am Trenton Morales MD [Primary Care Provider] - 01/31/19 Disposition: Home, Self-[facility] Medications: Home Medications Medication Instructions Recorded Confirmed Type conjugated estrogens 0.625 mg 0.625 mg PO DAILY 90 Days #90 tab 06/25/18 01/28/19 History tablet omeprazole 20 mg capsule,delayed 20 mg PO DAILY 90 Days #90 cap 06/25/18 01/28/19 History release potassium chloride ER 10 mEq 10 meq PO DAILY 30 Days #30 tab 06/25/18 01/28/19 History tablet,extended release sertraline 100 mg tablet 100 mg PO DAILY 90 Days #90 tab 06/25/18 01/28/19 History Albuterol Sulfate [Proair Hfa 2 puffs IH TID PRN 01/28/19 01/28/19 History 90mcg/puff Inh] Amitriptyline HCl [Elavil 10mg 10 mg PO HS 01/28/19 01/28/19 History tablet] Amitriptyline HCl [Elavil 25mg 25 mg PO HS 01/28/19 01/28/19 History tablet] Cetirizine HCl 10 mg PO DAILY 01/28/19 01/28/19 History Dicyclomine HCl 20 mg PO QID 01/28/19 01/28/19 History Hydrocodone/Ibuprofen 1 - 2 each PO BID PRN 01/28/19 01/28/19 History [Hydrocodone-Ibuprofen 7.5-200] Lidocaine HCl [Lidocaine 2% jelly 1 each TP BID 01/28/19 01/28/19 History 5mL tube] Magnesium Oxide [Mag-Ox 400mg Tab] 400 mg PO DAILY 01/28/19 01/28/19 History Metoclopramide HCl [Reglan 10mg 10 mg PO DAILY 01/28/19 01/28/19 History Tab] Multivitamin [Multivitamins] 1 each PO DAILY 01/28/19 01/28/19 History Phenazopyridine HCl [Pyridium 200 mg PO TID 01/28/19 01/28/19 History 200mg Tablet] Promethazine HCl [Phenergan 25mg 25 mg PO Q6HP PRN 01/28/19 01/28/19 History tab] Simethicone 180 mg PO BID 01/28/19 01/28/19 History Temazepam [Restoril] 30 mg PO HS PRN 01/28/19 01/28/19 History Tolterodine Tartrate [Detrol LA] 4 mg PO DAILY 01/28/19 01/28/19 History Ondansetron HCl [Ondansetron 4mg 4 mg PO Q6HP PRN #28 tab 01/29/19 Rx Tablet] levoFLOXacin [Levaquin 500mg 500 mg PO DAILY #7 tab 01/29/19 Rx tab] Prescriptions/Medication Reconciliation: New Ondansetron HCl [Ondansetron 4mg Tablet] 4 mg PO Q6HP PRN #28 tab PRN Reason: Nausea levoFLOXacin [Levaquin 500mg tab] 500 mg PO DAILY #7 tab Continued omeprazole 20 mg capsule,delayed release 20 mg PO DAILY 90 Days #90 cap sertraline 100 mg tablet 100 mg PO DAILY 90 Days #90 tab potassium chloride ER 10 mEq tablet,extended release 10 meq PO DAILY 30 Days #30 tab conjugated estrogens 0.625 mg tablet 0.625 mg PO DAILY 90 Days #90 tab Simethicone 180 mg PO BID Promethazine HCl [Phenergan 25mg tab] 25 mg PO Q6HP PRN PRN Reason: Nausea And Vomiting Metoclopramide HCl [Reglan 10mg Tab] 10 mg PO DAILY Amitriptyline HCl [Elavil 10mg tablet] 10 mg PO HS Amitriptyline HCl [Elavil 25mg tablet] 25 mg PO HS Cetirizine HCl 10 mg PO DAILY Dicyclomine HCl 20 mg PO QID Lidocaine HCl [Lidocaine 2% jelly 5mL tube] 1 each TP BID Magnesium Oxide [Mag-Ox 400mg Tab] 400 mg PO DAILY Multivitamin [Multivitamins] 1 each PO DAILY Phenazopyridine HCl [Pyridium 200mg Tablet] 200 mg PO TID Temazepam [Restoril] 30 mg PO HS PRN PRN Reason: Insomnia Tolterodine Tartrate [Detrol LA] 4 mg PO DAILY Albuterol Sulfate [Proair Hfa 90mcg/puff Inh] 2 puffs IH TID PRN PRN Reason: SHORTNESS OF AIR Hydrocodone/Ibuprofen [Hydrocodone-Ibuprofen 7.5-200] 1 - 2 each PO BID PRN PRN Reason: PAIN
== END 2019-01-29 17:45 | disposition home or self-care (01) ==
LOC: 2ND 03:39 → ER 03:39 → 2ND 10:51
PROVIDERS: ADMIT Internal Medicine Adolescent Medicine; ATTEND Internal Medicine Adolescent Medicine
CPT/HCPCS: 36415; 74177; 80048; 80053; 81001; 82150; 83605; 83690; 83735; 85007; 85025; 85651; 86140; 87040; 87086; 96365; 96375; 99284; G0378; J1956; J2405; Q9967

== ENCOUNTER → 2019-02-28 12:44 | Outpatient (CLI) | payer BC, SELFPAY ==
--- NOTE | 2019-02-28 12:48 | XR_ITS ---
XR wrist RT min 3V Ordering Physician: Trenton Morales MD Patient Age: 58 years: Female HISTORY: ITS.REASON: RIGHT WRIST INJURY Pain after riding 4 [place]. No previous injury. Pain medial aspect of wrist. TECHNIQUE: 3 views right wrist COMPARISON :None FINDINGS No acute fracture nor dislocation. The carpals appear intact. Normal appearance. Joint spaces well-maintained. Scant degenerative changes and sharpening at the first carpal-metacarpal joint. Radiocarpal joint is intact. Borderline ulnar minus variant. There are likely some tiny subchondral cyst & question some very subtle irregular appearance towards the tip of the ulnar styloid. Nonspecific. No fracture here. Possible minor degenerative changes on reflection of minor old trauma this region. Correlation required The pronator quadratus fat plane anterior to wrist appears intact.. IMPRESSION: ... . No acute findings at the right wrist. No fracture Very minor observations of questionable significance as noted in text
== END ==
PROVIDERS: PCP Internal Medicine Adolescent Medicine; Visit Provider Internal Medicine Adolescent Medicine
DX: M25.531 Pain in right wrist (principal); S69.91XA Unspecified injury of right wrist, hand and finger(s), initial encounter
CPT/HCPCS: 73110

== ENCOUNTER → 2019-07-13 04:33 | Outpatient (CLI) | payer BC, SELFPAY ==
--- NOTE | 2019-07-13 04:38 | CT_ITS ---
PROCEDURE: CT ABDOMEN PELVIS WO CON CLINICAL INDICATION: Left flank pain Left flank pain for 3 weeks COMPARISON: ABDPELW CT abdomen pelvis w con from 01/28/2019 TECHNIQUE: Axial images obtained with sagittal and coronal reformats. All CT scans at the facility use one or more dose reduction, viz: automated exposure control, ma/kV adjustment per patient size (including targeted exams where dose is matched to indication, i.e. head), or iterative reconstruction technique. FINDINGS: Lower thorax: No acute finding The liver, gallbladder, spleen, adrenal glands, pancreas, and kidneys have an unremarkable appearance. No renal or ureteral calculi. There is a small umbilical hernia containing fat. No evidence of appendicitis. No intestinal obstruction or free air or free fluid. There are post hysterectomy changes. Ossification noted of the round ligament. Urinary bladder has an unremarkable appearance. There are multiple pelvic phleboliths. There are a few sigmoid diverticula. No evidence of diverticulitis. There is a mild amount of retained colonic feces no acute bony anomalies. IMPRESSION: No acute abdominal or pelvic findings. No renal or ureteral calculi. Incidental findings include a small umbilical hernia containing fat as well as a mild amount of retained colonic feces. Dictated by: Vazquez Rojas MD 07/13/2019 06:16 Electronically signed by Vazquez Rojas MD in [place] 07/13/2019 06:16
== END ==
PROVIDERS: PCP Internal Medicine Adolescent Medicine; Visit Provider Internal Medicine Adolescent Medicine
DX: R10.9 Unspecified abdominal pain (principal)
CPT/HCPCS: 74176

== ENCOUNTER → 2019-07-13 08:02 | Outpatient (CLI) | payer BC, SELFPAY ==
--- NOTE | 2019-07-13 08:05 | MM_ITS ---
PROCEDURE: MM DIG SCREENING MAMM BI W/CAD Patient Age:58Y CLINICAL INDICATION: SCREENING Patient taking Premarin. No new complaints. Family history: Paternal aunt & paternal 1st cousin with breast cancer COMPARISON: [facility] DIGITAL MAMM-SCREEN BILATERAL from 03/27/2012 [facility] DIG MAMM-SCREEN KARMEN from 04/14/2013 [facility]B DIG MAMM-SCREEN KARMEN from 05/07/2014 DMDXUAVR DIG MAMM-DX UNI ADD VIEWS-RT from 11/19/2014 [facility]B DIG MAMM-SCREEN KARMEN from 12/26/2015 [facility]B DIG MAMM-SCREEN KARMEN W/CAD from 01/30/2017 TECHNIQUE: Standard CC and MLO images were obtained. R2 CAD reviewed. FINDINGS: Mild accentuation of fibroglandular elements bilaterally a particularly when compared back 2015, 2013 mammogram, but appears more similar when compared back to studies dating back to 2013 studies.. I suspect this reflects a combination of technique along with Premarin/exogenous hormone effect LEFT BREAST: More pronounced area density, more evident focal area of density deep left breast on today's MLO view. Most likely this reflects licensed sales assistant technique along with perhaps additional exogenous hormone/Premarin effect evident on today's study. However to be cautious this does warrant additional spot view and ultrasound (at area labeled X this likely resides towards the lateral breast). Focal area of tissue was seen here on prior studies but again stands out more so today. Recommend spot MLO and CC view of area labeled X along with a full 90 degree view left breast, with subsequent ultrasound if these areas persist Similarly an area labeled Y, which is highlighted by the computer CAD review, also noted again I believe most likely glandular tissue. A which is most likely likely stable but accentuated by overlapping shadows, licensed sales assistant technique and Premarin. Thus it is more evident on today's study.. RIGHT BREAST: Stable architecture. Mild accentuation of fibroglandular elements, which I suspect in part reflecting exogenous hormones, along with technique. However no significant new findings. Follow-up 1 year recommended IMPRESSION: LEFT BREAST: Slight more pronounced areas of density labeled X & Y on today's MLO view -warrant spot views and ultrasound. I suspect these most likely is reflection combination summation shadow and licensed sales assistant technique today, along with exogenous hormone effect is, accentuating these areas. RIGHT BREAST. Subtle accentuation of fibroglandular elements, compared to recent prior studies, but no new areas of significant concern. But follow-up 1 year on right BI-RAD Category: 0 Need Additional Imaging Evaluation FOLLOW-UP: IMM Immediate Follow-up Recommended Additional views and ultrasound left breast recommended (A letter has been sent to the patient regarding results of the study.) Dictated by: Garland Tillman MD 07/14/2019 10:54 Electronically signed by Garland Tillman MD in [place] 07/14/2019 10:54
== END ==
PROVIDERS: PCP Internal Medicine Adolescent Medicine; Visit Provider Internal Medicine Adolescent Medicine
DX: Z12.31 Encounter for screening mammogram for malignant neoplasm of breast (principal)
CPT/HCPCS: 77067

== ENCOUNTER → 2019-08-03 13:46 | Outpatient (CLI) | payer BC, SELFPAY ==
--- NOTE | 2019-08-03 13:51 | MM_ITS ---
PROCEDURE: MM DIG MAMM DX UNILAT LT CAD CLINICAL INDICATION: ABNORMAL MAMM COMPARISON: [facility] DIGITAL MAMM-SCREEN BILATERAL from 03/27/2012 DMSB DIG MAMM-SCREEN KARMEN from 04/14/2013 DMSB DIG MAMM-SCREEN KARMEN from 05/07/2014 DMDXUAVR DIG MAMM-DX UNI ADD VIEWS-RT from 11/19/2014 DMSB DIG MAMM-SCREEN KARMEN from 12/26/2015 [facility]B DIG MAMM-SCREEN KARMEN W/CAD from 01/30/2017 MM DIG SCREENING MAMM BI W/CAD from 07/13/2019 US BREAST LT COMPLETE from 08/03/2019 TECHNIQUE: Problem solving views are performed of the left breast along with left breast ultrasound FINDINGS: Average fibroglandular tissue. Spot compression views are performed of the areas of asymmetry in the mid and inferior aspect of the left breast as seen on the MLO view. There is some persistent asymmetry in the inferior aspect of the left breast on the spot compression views however, these areas are non this script. There has been asymmetry in this region on multiple previous exams dating back to 04/14/2013. The area labeled X on the screening mammogram appears to partially compress out on the focal spot compression view.. This had a similar appearance on 04/14/2013. Left breast ultrasound: 6 mm cyst at 5 o'clock. 7 mm cyst at 7 o'clock. 3 mm cyst at 8 o'clock. No suspicious lesions are evident. IMPRESSION: Probably benign asymmetries. No discrete mass. Recommend six-month mammographic and sonographic follow-up BI-RAD Category: 3 Probably Benign Finding Short Term Follow-up FOLLOW-UP: 6M 6Month Follow-up (A letter has been sent to the patient regarding results of the study.) A and should 3 0 Dictated by: Vazquez Rojas MD 08/13/2019 09:59 Electronically signed by Vazquez Rojas MD in [place] 08/13/2019 09:59
== END ==
PROVIDERS: PCP Internal Medicine Adolescent Medicine; Visit Provider Internal Medicine Adolescent Medicine
DX: R92.8 Other abnormal and inconclusive findings on diagnostic imaging of breast (principal)
CPT/HCPCS: 76641; 77065

== ENCOUNTER → 2019-10-28 08:03 | Outpatient (CLI) | payer BC, SELFPAY ==
--- NOTE | 2019-10-28 08:11 | MR_ITS ---
PROCEDURE: MR HEAD/BRAIN WO CON CLINICAL INDICATION: ACUTE NONINTRACTABLE HEADACHE Recurring headache, COMPARISON: No exams were available for comparison TECHNIQUE: Routine multiplanar multi echo sequences are performed without gadolinium enhancement. FINDINGS: No midline shift, mass effect, intracranial hemorrhage, or hydrocephalus. No evidence of acute infarction The cerebellopontine angles, cerebellum, and brainstem are unremarkable. There are few scattered periventricular and subcortical T2 white matter hyperintensities which are nonspecific and may represent ischemic gliotic foci from small vessel disease. It is noted that the basilar artery and vertebral arteries are fairly small. This however is some metric and is of questionable clinical significance The pituitary, optic chiasm, corpus callosum, and craniocervical junction have an unremarkable appearance. The mild mucosal thickening is present in the left frontal ethmoid sinus region. No mastoid effusion or sinus air-fluid level. There is mild bulging disc at C3-C4 with narrowing of the canal at that level. IMPRESSION: 1. No acute intracranial findings. 2. Small caliber of the vertebral basilar system of questionable clinical significance. 3. Mild bulging disc at C3-C4 with canal narrowing. 4. There are few scattered T2 white matter hyperintensities which are nonspecific and may be related to ischemic gliotic microvascular changes. Migraine headache and demyelinating process also included in the differential diagnosis. Dictated by: Vazquez Rojas MD 10/29/2019 08:46 Electronically signed by Vazquez Rojas MD in [place] 10/29/2019 08:46
== END ==
PROVIDERS: PCP Internal Medicine Adolescent Medicine; Visit Provider Internal Medicine Adolescent Medicine
DX: R51 Headache (principal)
CPT/HCPCS: 70551

== ENCOUNTER → 2019-12-04 11:02 | Outpatient (CLI) | payer BC, SELFPAY ==
[2019-12-04 15:21] LABS: Alanine Aminotransferase 18 U/L (12-78); Albumin Level 4.7 g/dl (3.5-5.0); Albumin/Globulin Ratio 1.8 (1.1-1.8); Alkaline Phosphatase 83 U/L (38-126); Anion Gap 14.1 mEq/L (5-15); Aspartate Amino Transferase 30 U/L (14-36); Bilirubin,Total 0.4 mg/dl (0.2-1.3); Blood Urea Nitrogen 13 mg/dl (7-17); Calcium 10.3 mg/dl (8.4-10.2); Carbon Dioxide 26 mmol/L (22.0-30.0); Chloride 101 mmol/L (98-107); Chol/HDL Ratio 2.9 (1-3.5); Cholesterol 225 mg/dl (140-200); Estimated Glomerular Filt Rate 85 ml/min (>60); GFR (African American) 103 ML/MIN (>60); Globulin 2.6 g/dL (1.3-3.2); Glucose 93 mg/dl (74-100); HDL Cholesterol 78 mg/dl (40-60); Potassium 4.1 mmoL/L (3.5-5.1); Sodium 137 mmol/L (136-145); Total Protein,Serum 7.3 g/dl (6.3-8.2); Triglycerides 124 mg/dl (30-150); VLDL Cholesterol 25 mg/dL (0-40)
[2019-12-04 15:32] LABS: Direct LDL Cholesterol 137.89 mg/dL (100-129)
== END ==
PROVIDERS: Visit Provider Internal Medicine Adolescent Medicine
DX: E78.5 Hyperlipidemia, unspecified (principal)
CPT/HCPCS: 36415; 80053; 80061

== ENCOUNTER → 2020-01-29 07:55 | Outpatient (CLI) | payer BC, SELFPAY ==
--- NOTE | 2020-01-29 | US_ITS ---
PROCEDURE: MM DIG MAMM DX UNILAT LT CAD Digital Breast Tomosynthesis Included CLINICAL INDICATION: ABN MAMM Follow-up abnormal mammogram COMPARISON: [facility]MSB DIG MAMM-SCREEN KARMEN W/CAD from 01/30/2017 MM DIG SCREENING MAMM BI W/CAD from 07/13/2019 US BREAST LT COMPLETE from 08/03/2019 MM DIG MAMM DX UNILAT LT CAD from 08/03/2019 US BREAST LT COMPLETE from 01/29/2020 TECHNIQUE: Standard images performed along with spot compression views tomosynthesis and left breast ultrasound FINDINGS: Average fibroglandular tissue. Scattered areas of asymmetry. No discrete mass. No malignant appearing mass or malignant-appearing microcalcification. Small nodes are present in the axilla Left breast ultrasound: 3 mm hypoechoic nodule at 12 o'clock which may be due to a complex cyst, 6 mm cyst 5 o'clock, 5 mm cyst at 6 o'clock, 6 4 mm cyst at 7 o'clock. No suspicious nodules. IMPRESSION: BI-RAD Category: 2 Benign Finding(s) FOLLOW-UP: 6M 6Month Follow-up to put patient back on screening schedule (A letter has been sent to the patient regarding results of the study.) Dictated by: Vazquez Rojas MD 02/05/2020 11:11 Electronically signed by Vazquez Rojas MD in [place] 02/05/2020 11:11
== END ==
PROVIDERS: PCP Internal Medicine Adolescent Medicine; Visit Provider Internal Medicine Adolescent Medicine
DX: R92.8 Other abnormal and inconclusive findings on diagnostic imaging of breast (principal)
CPT/HCPCS: 76641; 77061; 77065; G0279

== ENCOUNTER → 2020-02-29 15:27 | Outpatient (CLI) | payer BC, SELFPAY ==
[2020-02-29 15:36] LABS: Adenovirus,PCR Not Detected (NotDetected); Bordetella Pertussis Not Detected (NotDetected); Chlamydophila Pneumoniae, PCR Not Detected (NotDetected); Coronavirus 19, PCR Not Detected (NotDetected); Coronavirus 229E Not Detected (NotDetected); Coronavirus NL63 Not Detected (NotDetected); Coronavirus OC43 Not Detected (NotDetected); Coronovirus HKU1,PCR Not Detected (NotDetected); Human Metapneumovirus Not Detected (NotDetected); Influenza A, PCR Not Detected (NotDetected); Influenza AH1, 2009 Not Detected (NotDetected); Influenza AH1, PCR Not Detected (NotDetected); Influenza AH3,PCR Not Detected (NotDetected); Influenza B, PCR Not Detected (NotDetected); Mycoplasma Pneumoniae, PCR Not Detected (NotDected); Parainfluenza 1, PCR Not Detected (NotDetected); Parainfluenza 2, PCR Not Detected (NotDetected); Parainfluenza 3, PCR Not Detected (NotDetected); Parainfluenza 4, PCR Not Detected (NotDetected); Respiratory Syncytial Virus Not Detected (NotDetected); Rhinovirus/Enterovirus Not Detected (NotDetected)
[2020-02-29 15:59] LABS: Basophils % 0.4 % (0.1-2.0); Eosinophils # 0.4 K/mm3 (0.0-0.4); Eosinophils % 5.5 % (0.1-12.0); Hematocrit 35.8 % (37.0-47.0); Hemoglobin 11.8 g/dL (12.2-16.2); Lymphocytes # 2.1 K/mm3 (0.7-4.5); Lymphocytes % 32.2 % (10-50); Mean Corpuscular Hemoglobin 29.8 pg (27.0-31.2); Mean Corpuscular Volume 90.3 fl (81-99); Mean Platelet Volume 7.4 fl (7.4-10.4); Monocytes # 0.3 K/mm3 (0.1-1.0); Monocytes % 5.1 % (1.7-9.3); Neutrophils # 3.6 K/mm3 (1.8-7.8); Neutrophils % 56.7 % (37.0-80.0); Platelet Count 271 K/mm3 (142-424); Red Blood Count 3.96 M/mm3 (4.20-5.40); Red Cell Distribution Width 13.8 % (11.5-17.5); White Blood Count 6.3 K/mm3 (4.8-10.8)
[2020-02-29 17:12] LABS: Chloride 106 mmol/L (98-107); Potassium 3.9 mmoL/L (3.5-5.1); Sodium 137 mmol/L (136-145)
[2020-02-29 17:15] LABS: Anion Gap 9.9 mEq/L (5-15); Blood Urea Nitrogen 13 mg/dl (7-17); Calcium 8.9 mg/dl (8.4-10.2); Carbon Dioxide 25 mmol/L (22.0-30.0); Estimated Glomerular Filt Rate 73 ml/min (>60); GFR (African American) 88 ML/MIN (>60); Glucose 100 mg/dl (74-100)
== END ==
PROVIDERS: Visit Provider Internal Medicine Adolescent Medicine
DX: Z20.828 Contact with and (suspected) exposure to other viral communicable diseases (principal); R50.9 Fever, unspecified
CPT/HCPCS: 36415; 80048; 85025; 87581; 87633; 87798

== ENCOUNTER 2020-03-07 05:53 | Emergency (ER) | payer OTHER, SELFPAY ==
[2020-03-07 05:55] VITALS: BP 126/72; PULSE 89; RESP 7; TEMP 36.8; O2SAT 95; BMI 27.4
--- NOTE | 2020-03-07 06:24 | CT_ITS ---
PROCEDURE: CT THORACIC SPINE WO CON CLINICAL HISTORY: back injury lifting pt Posttraumatic pain COMPARISON: No exams were available for comparison TECHNIQUE: Axial images obtained with sagittal and coronal reformats. All CT scans at the facility use one or more dose reduction, viz: automated exposure control, ma/kV adjustment per patient size (including targeted exams where dose is matched to indication, i.e. head), or iterative reconstruction technique. FINDINGS: Generalized osteopenia. Mild multilevel thoracic spondylosis. No acute fracture or dislocation. No lytic or blastic change or bony canal stenosis. IMPRESSION: Thoracic spondylosis, no acute finding Dictated by: Vazquez Rojas MD 03/07/2020 07:47 Electronically signed by Vazquez Rojas MD in [facility] 03/07/2020 07:47
--- NOTE | 2020-03-07 06:24 | CT_ITS ---
PROCEDURE: CT LUMBAR SPINE WO CON CLINICAL HISTORY: back injury lifting pt Posttraumatic pain COMPARISON: CT ABDOMEN PELVIS WO CON from 07/13/2019 TECHNIQUE: Axial images obtained with sagittal and coronal reformats. All CT scans at the facility use one or more dose reduction, viz: automated exposure control, ma/kV adjustment per patient size (including targeted exams where dose is matched to indication, i.e. head), or iterative reconstruction technique. FINDINGS: Normal alignment. No acute fracture or dislocation. Sclerotic focus is present in the left ilium at 5 mm and could be due to a bone island. Incidental note made colonic diverticulosis. There is mild bulging disc at L4-5 and L5-S1. No bony canal stenosis. IMPRESSION: No acute finding Dictated by: Vazquez Rojas MD 03/07/2020 07:50 Electronically signed by Vazquez Rojas MD in [facility] 03/07/2020 07:50
--- NOTE | 2020-03-07 07:11 | HMH.EDBACK ---
ED Disposition Clinical Impression: Lumbar radiculopathy Disposition: Home, Self-Care Condition on Discharge: Fair Instructions: DI for Low Back Pain Additional Instructions: call pcp today for follow up and treatment Prescriptions: Cyclobenzaprine HCl [Flexeril 10mg tablet] 10 mg PO TID PRN 21 Days #90 tab PRN Reason: Muscle Spasm Prescription Printed Hydrocod/Acet 5/325 mg [[place] 5/325mg tablet] 1 tab PO Q6HP PRN #12 tab PRN Reason: Moderate To Severe Pain Prescription Printed predniSONE [Prednisone 20mg Tab] 20 mg PO BID #10 tab Prescription Printed Referrals: Trenton Morales MD [Primary Care Provider] - - Critical Care Critical Care Time: No Attestation: On 03/07/20, the high probability of a clinically significant, sudden or life threatening deterioration of the following system(s) required my full and direct attention, intervention and personal management. The time I documented below is in addition to time spent performing reported procedures but includes the following listed in this critical care notation. Medical Decision Making - Medical Records Medical records reviewed: Yes: I reviewed the patient's medical records. - Al Inquiry Pt receiving controlled substance: No Vital Signs: 03/07/20 05:55 03/07/20 07:42 03/07/20 08:09 Temperature 98.2 F Temperature Source Oral Pulse Rate [Left Radial] 89 77 83 Respiratory Rate 7 L 16 Blood Pressure [Right Arm] 126/72 124/47 L 131/87 Blood Pressure Mean [Right Arm] 90 72 101 Blood Pressure Source [Right Arm] Automatic Cuff Blood Pressure Position [Right Arm] Sitting 02 Sat by Pulse Oximetry 95 97 Oxygen Delivery Method Room Air Room Air Orders (Tests/Meds): ED MEDICATIONS Discontinued Medications Generic Name Dose Route Start Last Admin Trade Name Freq PRN Reason Stop Dose Admin Hydromorphone HCl 1 mg 03/07/20 07:16 03/07/20 07:20 Dilaudid 2mg/Ml Syringe IV 03/07/20 07:17 1 mg ONCE ONE Administration Hydromorphone HCl 1 mg 03/07/20 08:10 03/07/20 08:11 Dilaudid 2mg/Ml Syringe IV 03/07/20 08:11 1 mg ONCE ONE Administration Methylprednisolone Sodium Succinate 125 mg 03/07/20 06:48 03/07/20 07:15 Solu-Medrol 125mg/2ml Vial IV 03/07/20 06:49 125 mg ONCE ONE Administration Morphine Sulfate 4 mg 03/07/20 06:27 03/07/20 06:49 Morphine 4mg/Ml Syringe IV 03/07/20 06:28 4 mg ONCE ONE Administration Promethazine HCl 25 mg 03/07/20 06:25 03/07/20 06:49 Phenergan 25mg/Ml 1ml Vial IV 03/07/20 06:26 25 mg ONCE ONE Administration Promethazine HCl 12.5 mg 03/07/20 07:17 03/07/20 07:20 Phenergan 25mg/Ml 1ml Vial IV 03/07/20 07:18 12.5 mg ONCE ONE Administration Sodium Chloride 25 ml 03/07/20 06:25 03/07/20 06:49 Sod Chlor 0.9% 25ml Bag IV 03/07/20 06:26 25 ml ONCE ONE Administration Sodium Chloride 25 ml 03/07/20 07:17 03/07/20 07:21 Sod Chlor 0.9% 25ml Bag IV 03/07/20 07:18 25 ml ONCE ONE Administration - CT Data CT Scan: T-Spine, L-Spine Time Received: 08:[address] Reviewed: Yes: I have viewed the radiologist's interpretation Preliminary Findings: No Fracture Seen Back Pain HPI - General Chief Complaint: Back Pain/Injury Stated Complaint: AER Pain in Lower Back;Kept pt from falling Time Seen by Provider: 03/07/20 07:11 Mode of Arrival: Wheelchair Source of Information: Patient, Medical Record Limitations: No Limitations Description of Symptoms (Recalled from ER Triage Doc. by RN): pt stated she caught a pt while they were falling and twisted her pain. pt complains of middle and lower back pain rating it a 8 on a 0-10 scale. - History of Present Illness HPI Narrative: acute back pain since catching pt this am - some radiation to legs - she has progressive pain - happened about 0500 MD Complaint: back injury Onset (ago): hour(s) Duration: constant Similar Symptoms Previously: No Location: lumbar spine Severity:
--- NOTE | 2020-03-07 07:18 | PC.NURSE ---
pt states minimal relief of pain with medications given
[2020-03-07 07:42] VITALS: BP 124/47; PULSE 77; RESP 16; O2SAT 97
[2020-03-07 08:09] VITALS: BP 131/87; PULSE 83
[2020-03-07 08:36] VITALS: BP 131/67; PULSE 83; RESP 16; TEMP 36.6; O2SAT 98
== END 2020-03-07 08:38 | disposition home or self-care (01) ==
PROVIDERS: Emergency Provider Emergency Medicine; PCP Internal Medicine Adolescent Medicine
DX: M54.16 Radiculopathy, lumbar region (principal); X50.0XXA Overexertion from strenuous movement or load, initial encounter; Y93.F2 Activity, caregiving, lifting; Y92.69 Other specified industrial and construction area as the place of occurrence of the external cause; Y99.0 Civilian activity done for income or pay
CPT/HCPCS: 72128; 72131; 96365; 96375; 96376; 99282

== ENCOUNTER → 2020-03-31 14:08 | Outpatient (POV) | payer OTHER, SELFPAY ==
[2020-03-31 14:54] VITALS: BP 148/57; PULSE 68; RESP 18; O2SAT 98; BMI 29.5
--- NOTE | 2020-03-31 15:29 | HMH.PMCON ---
Assessment and Plan (1) Right low back pain Current visit: Yes Status: Acute Category: Medical Code(s): M54.5 - Low back pain (2) Spasm of muscle of lower back Current visit: Yes Status: Acute Category: Medical Code(s): M62.830 - Muscle spasm of back - Assessment and plan all Dx Assessment and Plan for all problems:: The patient has tried oral medications of [place] and tramadol which have not given her relief. She is also tried tizanidine and cyclobenzaprine. I have advised the patient to stop taking tizanidine and cyclobenzaprine. We will start her on Robaxin 500 mg 1 tablet p.o. twice daily. I have advised her to use caution when taking Robaxin with [place] or tramadol. We will schedule her for trigger point injections to her right lumbar paraspinous area. We will see her back in the clinic after her injections to reassess her symptoms. She was thoroughly educated on the injections. The patient and I specifically discussed risk factors for COVID19. These risks include, but are not limited to age greater than 60, heart or lung disease, diabetes, immunosuppression, and travel. We also discussed NSAIDs may worsen COVID19 infection or symptoms. Patient should not use NSAIDs to treat COVID19 signs or symptoms. Patient was also informed that any type of corticosteroid of any form (oral or injection) will decrease the patient's immune system response and may increase the likelihood of COVID19 infection and symptoms. Given the risks and benefits of the injection, the patient would like to proceed with the injections. Has been instructed to contact clinic if she has any concerns before her next appointment. Dr. Whitt has reviewed this note and agrees with this plan of care. This note was dictated using voice recognition software and make contain errors or omissions. HPI - Data of Consult Patient: new to practice Consult date: 03/31/20 Requesting Physician: Vaishnavi Shipman APRN Primary Care Provider: Trenton Morales MD - Consult Narrative Reason for consult: Right low back pain History of present illness: Ms. Cerda is a 59 year old female who presents today for consultation for right low back pain. 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 She says that she immediately began stretching her back to try to get relief, however, she says the pain never went away. Patient has tried medications of Flexeril as well as tizanidine and has not gotten relief. She is also tried tramadol and [place]. Neither medication have given her any relief. She does rate her pain an 8 out of 10 today. Patient says the pain is worse with any type of movement. She says that ice and heat have not given her relief. She did undergo physical therapy which also did not give her any relief. She says that pain feels as though it is a pulled muscle . She says that she does not feel that the pain is coming from her spine. CC: Vaishnavi Shipman APRN [facility] History I have reviewed the patient's past medical history: Yes Medical History: Reports:: Gastroesophageal Reflux Disease(GERD), Hyperlipidemia, Hypertension, Kidney Stones *Have you ever received a pneumonia vaccine?: Yes *Have you received a flu vaccine this season?: Yes Other Medical History: Reports: Arthritis, Fibromyalgia Other Surgeries: Yes: , Hysterectomy-Total, Tubal Ligation, Other (TVT, BOTOX IN BLADDER ) Amputation: No Fractures: No - *Social History Smoking Status: Never smoker Alcohol Intake: never Alcohol Intake Frequency:: holidays/special occasions only Substance Use Type: denies use *Occupational Status:: other Housing: house Household Members: spouse *Travel in the last 8 weeks: None Family Hx:: Unable to obtain Review of Systems - Review of Systems Review of Systems General: No recent weight changes, no fever, no sleep disturbances Respiratory: No cough,
== END ==
PROVIDERS: PCP Internal Medicine Adolescent Medicine; Visit Provider Clinical Nurse Specialist Family Health
DX: M54.5 Low back pain (principal); M62.830 Muscle spasm of back
CPT/HCPCS: 99202

== ENCOUNTER 2020-04-28 10:30 | Outpatient (RCR) | payer OTHER, SELFPAY ==
--- NOTE | 2020-03-11 08:48 | HMH.PTOPEV ---
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 Main complaint is lumbar spine pain , but she also experiences radiating pain to the lower thoracic spine after prolonged activity. No radicular symptoms to report. Pt reported a sharp pain with bending/lifting/twisting motion. Most recent imaging indicates L 4/5 L 5/S1 mild bulging discs and multi-level thoracic spondylosis. Special tests indicate R anterior rotation of the innominant. Comorbidities include hx of cervical spine pain, and L knee mensicectomy. This is a WC case. Chief Complaint Pain,Spasms,Stiff Symptom Type Ache,Sharp Symptoms Relieved By Rest/Positioning,Ice, Prescription Meds Symptoms Aggravated By Standing,Bending/Stooping, Physical Activity,Walking, Lifting Prior Functional Limitations None Current Functional Limitations Lifting,Housework,Standing, Squatting,Walking,Bending/ Stooping Symptom Description Constant but Variable Level of pain today (0-10) 4 Pain scale - at its best (0-10) 3 Pain scale - at its worst (0-10) 8 Lumbopelvic Eval Posture Thoracic Spine Posture Standing Position Increased Kyphosis Lumbar Spine Posture Standing Position Increased Lordosis Palapation tenderness bilateral lumbar spinal tenderness Yes: 2/4 L3-S1 paraspinal tenderness Yes: 3/4 L3-S1 buttock tenderness No Lumbar/Sacral Palpation Findings Tenderness Lumbar/Sacral Palpation Overall Comment B PSIS R>L 3/4 Acces
== END 2020-04-28 10:35 | disposition home or self-care (01) ==
LOC: PT 10:30
PROVIDERS: Visit Provider Internal Medicine Adolescent Medicine
DX: M54.9 Dorsalgia, unspecified (principal)
CPT/HCPCS: 97010; 97014; 97033; 97035; 97110; 97140; 97163; 97164; G0283

== ENCOUNTER → 2020-05-02 09:49 | Outpatient (POV) | payer OTHER, SELFPAY ==
[2020-05-02 09:59] VITALS: BP 104/72; PULSE 78; RESP 18; O2SAT 99; BMI 29.2
--- NOTE | 2020-05-02 10:14 | P.CONS_ITS ---
[facility] Pain Management SOAP Note Subjective:: Patient is a pleasant 59-year-old white female who presents today for follow-up. Patient was denied trigger point injections. She is completed physical therapy. She has palpable trigger points in her lumbar paraspinous areas bilaterally and her right scapular region. Patient rates her pain today 6 out of 10. The Robaxin that she was given does help patient and I discussed increasing that for this time. 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 So we will increase her medication and see her back in a month. Her injury was in February. ROS General: no recent weight change, no fever, no sleep disturbances Respiratory: no cough, no shortness of air, no recurring pulmonary infections Cardiovascular/Peripheral Vascular: No chest pain, No palpitations, no edema, no shortness of breath. Gastrointestinal: no new onset incontinence, normal bowel movements reported Genitourinary: no new onset incontinence Musculoskeletal: Back pain, muscle pain Psychiatric: normal mood/ affect Neurological: [denies new onset weakness in extremities], [denies new onset balance issues] Objective:: Physical Exam General: Alert and oriented x3, no acute distress, pleasant and cooperative, [on room air] Lungs: Resps E/U, Symmetrical chest expansion, Eyes: PERRL Musculoskeletal: Flexion and extension of lumbar spine somewhat guarded secondary to pain, deep tendon reflexes normal, strength in upper and lower extremities [5/5], normal gait noted Neurological: speech clear, general utility machine operator equal, no gross sensory deficits Assessment:: Myofascial pain syndrome, back pain, muscle spasms Plan:: We will increase her Robaxin to thousand milligrams 1 p.o. 3 times daily. We will see her back in 1 month reassess her symptoms at that time she has been instructed to call the office if she has any issues prior to her next appointment. Dr. Whitt has reviewed this note and agrees with this plan of care. This note was dictated using voice recognition software and may contain errors or omissions [facility] History I have reviewed the patient's past medical history: Yes Medical History: Reports:: Gastroesophageal Reflux Disease(GERD), Hyperlipidemia, Hypertension, Kidney Stones *Have you ever received a pneumonia vaccine?: Yes *Have you received a flu vaccine this season?: Yes Other Medical History: Reports: Arthritis, Fibromyalgia Other Surgeries: Yes: , Hysterectomy-Total, Tubal Ligation, Other (TVT, BOTOX IN BLADDER ) Amputation: No Fractures: No - *Social History Smoking Status: Never smoker Alcohol Intake: never Alcohol Intake Frequency:: holidays/special occasions only Substance Use Type: denies use *Occupational Status:: other Housing: house Household Members: spouse *Travel in the last 8 weeks: None Family Hx:: Unable to obtain
== END ==
PROVIDERS: PCP Internal Medicine Adolescent Medicine; Visit Provider Clinical Nurse Specialist Family Health
DX: M79.18 Myalgia, other site (principal); M54.9 Dorsalgia, unspecified; M62.830 Muscle spasm of back
CPT/HCPCS: 99212

== ENCOUNTER → 2020-05-03 16:15 | Outpatient (POV) | payer OTHER, SELFPAY | PROVIDERS: PCP Internal Medicine Adolescent Medicine; Visit Provider Dermatology | DX: Z00.00 Encounter for general adult medical examination without abnormal findings (principal) ==

== ENCOUNTER → 2020-06-06 11:12 | Outpatient (POV) | payer OTHER, SELFPAY ==
[2020-06-06 11:16] VITALS: BP 127/77; PULSE 74; RESP 18; TEMP 36.8; O2SAT 98; BMI 29.2
--- NOTE | 2020-06-06 11:41 | P.CONS_ITS ---
[facility] Pain Management SOAP Note Subjective:: Patient is a pleasant 59-year-old white female who presents today for follow-up. 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 This is been 3 months ago. Patient has extreme point tenderness over her right SI joint. She has a positive Madi test Keke's test and SI joint compression test in this area. I do believe this is acute and potentially could be fixed with an injection in this area. She has completed physical therapy. She is tried and failed medications including [place], tramadol, Robaxin. She rates her pain a 4 out of 10 however this is with no activity as she increases activity it becomes much more painful. Patient I also discussed briefly about an SI joint belt. . ROS General: no recent weight change, no fever, no sleep disturbances Respiratory: no cough, no shortness of air, no recurring pulmonary infections Cardiovascular/Peripheral Vascular: No chest pain, No palpitations, no edema, no shortness of breath. Gastrointestinal: no new onset incontinence, normal bowel movements reported Genitourinary: no new onset incontinence Musculoskeletal: SI joint pain right side Psychiatric: normal mood/ affect Neurological: [denies new onset weakness in extremities], [denies new onset balance issues] Objective:: Physical Exam General: Alert and oriented x3, no acute distress, pleasant and cooperative, [on room air] Lungs: Resps E/U, Symmetrical chest expansion, Eyes: PERRL Musculoskeletal: Flexion and extension of lumbar spine somewhat guarded secondary to pain, deep tendon reflexes normal, strength in upper and lower extremities [5/5], antalgic gait noted, positive Keke's test SI joint compression test and Madi test on the right side, extreme tenderness over right SI joint Neurological: speech clear, manager of network equal, no gross sensory deficits Assessment:: Sacroiliitis, myofascial pain syndrome, back pain Plan:: We will schedule her for a right SI joint injection I believe given her symptomology and the length of time that she has had these symptoms it would be beneficial for her. I will follow-up with her after this reassess her symptoms at that time she has been instructed to call the office if she has any issues prior to her next appointment. Dr. Whitt has reviewed this note and agrees with this plan of care. This note was dictated using voice recognition software and may contain errors or omissions [facility] History I have reviewed the patient's past medical history: Yes Medical History: Reports:: Gastroesophageal Reflux Disease(GERD), Hyperlipidemia, Hypertension, Kidney Stones *Have you ever received a pneumonia vaccine?: Yes *Have you received a flu vaccine this season?: Yes Other Medical History: Reports: Arthritis, Fibromyalgia Other Surgeries: Yes: , Hysterectomy-Total, Tubal Ligation, Other (TVT, BOTOX IN BLADDER ) Amputation: No Fractures: No - *Social History Smoking Status: Never smoker Alcohol Intake: never Alcohol Intake Frequency:: holidays/special occasions only Substance Use Type: denies use *Occupational Status:: other Housing: house Household Members: spouse *Travel in the last 8 weeks: None Family Hx:: Unable to obtain
== END ==
PROVIDERS: PCP Internal Medicine Adolescent Medicine; Visit Provider Clinical Nurse Specialist Family Health
DX: M46.1 Sacroiliitis, not elsewhere classified (principal); M79.18 Myalgia, other site; M54.9 Dorsalgia, unspecified
CPT/HCPCS: 99212

== ENCOUNTER 2020-07-18 13:16 | Day surgery (SDC) | payer OTHER, BC, SELFPAY ==
[2020-07-18 13:29] VITALS: BP 126/75; PULSE 80; RESP 18; TEMP 36.4; O2SAT 96; BMI 29.0
[2020-07-18 14:02] VITALS: BP 125/85; PULSE 85; RESP 18; O2SAT 98
--- NOTE | 2020-07-18 14:03 | P.PCN_ITS ---
- Procedure Date: 07/18/20 Time: 14:03 Anesthesiologist:: Pauline Rosado APRN Complications:: None Pre-procedure Diagnosis:: Sacroiliitis Post-procedure Diagnosis:: Same Indications for Procedure:: Patient is a very pleasant 59-year-old white female who presents today for SI joint injection. 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 She has extreme point tenderness over her right SI joint she has a positive Madi test Keke's test SI joint compression test and distraction test on the right side. She is trying failed medications including [place], tramadol, Robaxin. She rates her pain a 5 out of 10 with no activity she does increase with activity. She has done physical therapy. Physical Exam General: Alert and oriented x3, no acute distress, pleasant and cooperative, [on room air] Lungs: Resps E/U, Symmetrical chest expansion, Eyes: PERRL Musculoskeletal: Flexion and extension of lumbar spine somewhat guarded secondary to pain, deep tendon reflexes normal, strength in upper and lower extremities [5/5], antalgic gait noted Neurological: speech clear, hospice team lead equal, no gross sensory deficits Procedure Details:: Informed consent was obtained and the risks and benefits of the procedure were explained to the patient. Patient was taken to the procedure room. Patient was placed prone on the procedure table. The [right] hip was prepped using ChloraPrep as a cleansing solution. The skin and subcutaneous tissues were anesthetized using lidocaine. Using fluoroscopic guidance I placed a 22-gauge spinal needle into the inferior aspect of the [right] SI joint. After this I injected 5 mL bupivacaine 0.25% and Depo-Medrol 40 mg into the [right] SI joint. The patient tolerated the procedure well with no complication. Plan and Disposition:: We will see the patient back in several weeks reassess his symptoms at that time she has been instructed to call the office if she has any issues prior to her next appointment. Dr. Whitt has reviewed this note and agrees with this plan of care. This note was dictated using voice recognition software and may contain errors or omissions
[2020-07-18 14:08] VITALS: BP 138/85; PULSE 85; RESP 18; O2SAT 99
[2020-07-18 14:18] VITALS: BP 135/81; PULSE 80; RESP 18; O2SAT 96
== END 2020-07-18 14:19 | disposition home or self-care (01) ==
LOC: SC.PAINP 13:17
PROVIDERS: PCP Internal Medicine Adolescent Medicine; Visit Provider Clinical Nurse Specialist Family Health
DX: M46.1 Sacroiliitis, not elsewhere classified (principal); K21.9 Gastro-esophageal reflux disease without esophagitis; F41.9 Anxiety disorder, unspecified; F32.9 Major depressive disorder, single episode, unspecified; G43.909 Migraine, unspecified, not intractable, without status migrainosus; Z82.49 Family history of ischemic heart disease and other diseases of the circulatory system; Z88.0 Allergy status to penicillin; Z88.2 Allergy status to sulfonamides; Z88.1 Allergy status to other antibiotic agents; Z91.040 Latex allergy status; Z79.890 Hormone replacement therapy; Z79.899 Other long term (current) drug therapy
CPT/HCPCS: 27096; G0260; Q9966

== ENCOUNTER 2020-07-28 16:13 | Emergency (ER) | payer BC, SELFPAY ==
[2020-07-28 16:25] VITALS: BP 155/67; PULSE 80; RESP 21; TEMP 36.9; O2SAT 94; BMI 28.6
--- NOTE | 2020-07-28 16:46 | HMH.EDUTC ---
[facility] [place] Disposition Clinical Impression: Thrush, Encounter for screening laboratory testing for COVID-19 virus Disposition: Home, Self-Care Condition on Discharge: Good Instructions: DI for Cough -- Adult, DI for Thrush, Thrush-Adult, Preventing the Spread of Coronavirus Discharge Instructions Additional Instructions: *Monitor Temp, Over the counter Motrin or Tylenol as directed/as needed Tylenol every 4 hours and Motrin every 6 hours (as long as your family doctor has told you that you can take it) for fever or pain. and straight to ER if unable to lower temp less than 101.0 after medication given *Warm salt water gargles may help to soothe the throat *Throat Lozenges *Warm fluids like tea with honey may help to soothe the throat *Sleep elevated *Humidifier/Vaporizer *Flonase 2 sprays in each nostril daily but be aware that it may take 2-3 days before you notice improvement Use medication as prescribed Your throat swab was sent for culture. Those results are typically sent to your primary care. Be sure to follow up in 2-3 days with your family doctor/primary care physician if no improvement so they can review those result and treat if necessary. If you don?t have a primary care doctor, I recommend you get one but in the mean time, you will have to return to a walk in clinic Follow up IMMEDIATELY for new or worsening symptoms or no Noticeable improvement over the next 48-72 hours. 911 for difficulty breathing or swallowing You was tested for today for COVID19 your test result should be back in the next 24-48 hours, you may call back on Saturday to see if your test results are back and the result You was given a handout with instructions for Self Quarantine and Self isolation for while you wait on test results and what to do if they are positive Prescriptions: Fluticasone Propionate [Flonase 50mcg nasal spray 16gm] 1 - 2 spr NS DAILY #1 bottle Transmission Status: Received by [id number] Nystatin [Nystatin Susp 500,000 Units/5mL Udc] 4 - 6 ml PO QID 10 Days #250 udc Transmission Status: Received by [id number] Referrals: Trenton Morales MD [Primary Care Provider] - As needed Forms: Work/School Release Medical Decision Making - Al Inquiry Pt receiving controlled substance: No Al was queried for this patient: No Vital Signs: 07/28/20 16:25 07/28/20 16:57 07/28/20 17:05 Temperature 98.4 F 98.4 F Temperature Source Oral Pulse Rate 78 Pulse Rate [Left Brachial] 80 78 Respiratory Rate 21 21 Blood Pressure 155/67 H Blood Pressure [Left Arm] 155/67 H Blood Pressure Mean [Left Arm] 96 Blood Pressure Source [Left Arm] Automatic Cuff Blood Pressure Position [Left Arm] Sitting 02 Sat by Pulse Oximetry 94 L 96 Oxygen Delivery Method Room Air Room Air - Lab Data Lab results reviewed: Yes: I reviewed the patient's lab results. Lab Results 07/28/20 16:32: Influenza Type A Ag Negative, Influenza Type B Ag Negative 07/28/20 16:32: Strep Scn Rapid Clinic Negative Orders (Tests/Meds): ORDERS Category Date Time Status Covid-19 Nasal PCR Sendout [facility] Stat [facility] 07/28/20 16:30 Received Strep Screen Confirmation Stat Micro 07/28/20 16:32 Received [facility] [place] HPI - General Stated complaint: COVID TEST Sore throat, sob Time Seen by Provider: 07/28/20 16:46 Mode of Arrival: Ambulatory Source of Information: Patient Limitations: No Limitations Description of Symptoms (Recalled from Triage Doc. by RN): PATIENT C/O SORE THROAT, DRY COUGH, WATERY EYES, HEADACHE, AND BAD TASTE SINCE YESTERDAY HEENT Symptoms (Recalled from RN notes): Yes Resp Symptoms (Recalled from RN notes): No Skin Symptoms (Recalled from RN notes): No MS Symptoms (Recalled from RN notes): No Functional Status (Recalled from RN notes): WNL - History of Present Illness Provider Complaint: Patient state that she hasnt been feeling well for a couple of days States that she has been having sore throat, dry cough
[2020-07-28 16:50] LABS: UTC Strep Screen (Rapid) Negative (Negative)
[2020-07-28 16:51] LABS: UTC Influenza A Antigen Negative (Negative); UTC Influenza B Antigen Negative (Negative)
[2020-07-28 16:57] VITALS: PULSE 78; O2SAT 96
[2020-07-28 17:05] VITALS: BP 155/67; PULSE 78; RESP 21; TEMP 36.9; O2SAT 96
[2020-07-30 16:10] LABS: Covid-19 Nasal PCR Sendout Lex Not Detected
== END 2020-07-28 17:09 | disposition home or self-care (01) ==
PROVIDERS: Emergency Provider Nurse Practitioner; PCP Internal Medicine Adolescent Medicine
DX: Z20.828 Contact with and (suspected) exposure to other viral communicable diseases (principal); B37.0 Candidal stomatitis; I10 Essential (primary) hypertension; E78.5 Hyperlipidemia, unspecified; M79.7 Fibromyalgia; K21.9 Gastro-esophageal reflux disease without esophagitis; Z87.442 Personal history of urinary calculi; Z79.899 Other long term (current) drug therapy; Z88.0 Allergy status to penicillin; Z88.2 Allergy status to sulfonamides; Z91.040 Latex allergy status; Z90.710 Acquired absence of both cervix and uterus
CPT/HCPCS: 87804; 87880; 99202; U0004

== ENCOUNTER → 2020-08-02 10:01 | Outpatient (CLI) | payer BC, SELFPAY ==
--- NOTE | 2020-08-02 10:23 | MM_ITS ---
PROCEDURE: MM DIG SCREENING MAMM BI W/CAD Digital Breast Tomosynthesis Included CLINICAL INDICATION: SCREENING There is a history of breast and paternal aunt. The patient currently is on Premarin. COMPARISON: MG DMSB DIG MAMM-SCREEN KARMEN W/CAD from 01/30/2017 MG MM DIG SCREENING MAMM BI W/CAD from 07/13/2019 MG MM DIG MAMM DX UNILAT LT CAD from 08/03/2019 MG MM DIG MAMM DX UNILAT LT CAD from 01/29/2020 TECHNIQUE: Standard CC and MLO images and 3D Tomosynthesis was obtained. R2 CAD reviewed. FINDINGS: Scattered fibroglandular densities are seen throughout both breasts. There are couple of benign-appearing microcalcifications left breast. Small areas of asymmetric glandular elements outer quadrant of each breast. There is no suspicious lesion and no suspicious microcalcifications. IMPRESSION: Fibrofatty parenchyma with no suspicious lesions seen BI-RAD Category: 2 Benign Finding(s) FOLLOW-UP: 1YR 1 Year Follow-up (A letter has been sent to the patient regarding results of the study.) Dictated by: Dr. Darren Schultz MD 08/04/2020 08:02 Dr. Darren Schultz MD in [place] 08/04/2020 08:02
== END ==
PROVIDERS: PCP Internal Medicine Adolescent Medicine; Visit Provider Internal Medicine Adolescent Medicine
DX: Z12.31 Encounter for screening mammogram for malignant neoplasm of breast (principal)
CPT/HCPCS: 77063; 77067

== ENCOUNTER → 2020-08-11 11:56 | Outpatient (POV) | payer OTHER, BC, SELFPAY ==
[2020-08-11 12:05] VITALS: BP 121/58; PULSE 77; RESP 18; O2SAT 98; BMI 28.1
--- NOTE | 2020-08-11 12:40 | HMH.PAINSOAP ---
[facility] Pain Management SOAP Note Subjective:: Patient is a 54-year-old white female who presents today for follow-up. She has been treated for chronic sacroiliitis. Patient says that she did well with her initial right SI joint injection. Patient primarily has pain in her right low back area and right buttock only. Patient does not have any pain radiating into her legs. She says that the pain is worse with certain movements. She says that walking makes it worse and sitting and does improve it. Her pain is a 5 out of 10. She would like to repeat the injection to see if she gets longer relief. Patient states she got up to a week of relief with her initial injection. Review of Systems General: No recent weight changes, no fever, no sleep disturbances Respiratory: No cough, no shortness of air, no recurring pulmonary infections Cardiovascular/peripheral vascular: No chest pain, no palpitations, no edema, no shortness of breath Gastrointestinal: No new onset incontinence, normal bowel movements reported Genitourinary: No new onset incontinence Musculoskeletal: Right low back pain, right buttock pain Psychiatric: Normal mood/affect Neurological: [Denies weakness in extremities], [denies balance issues] Objective:: Physical exam General: Alert and oriented x3, no acute distress, pleasant and cooperative, [on room air] Lungs: Respirations even and unlabored, symmetrical chest expansion Eyes: PERRL Musculoskeletal: Flexion and extension of lumbar spine somewhat guarded secondary to pain, deep tendon reflexes normal, strength in upper and lower extremities [5/5], [abnormal gait noted], positive Keke's test, positive compression test, positive SI distraction test Neurological: Speech clear, keyboard action assembler equal, no gross sensory deficit Assessment:: Sacroiliitis Plan:: We will schedule the patient for repeat right SI joint injection to see if she gets relief. We will plan to see her back in the clinic afterwards to reassess her symptoms. She has been instructed to contact the clinic if she has any concerns for next appointment. She and I did discuss the corner lock procedure if she does continue to have pain in her right SI joint. Patient did get approximately 60% relief for about a week after her initial injection. The patient and I specifically discussed risk factors for COVID19. These risks include, but are not limited to age greater than 60, heart or lung disease, diabetes, immunosuppression, and travel. We also discussed NSAIDs may worsen COVID19 infection or symptoms. Patient should not use NSAIDs to treat COVID19 signs or symptoms. Patient was also informed that any type of corticosteroid of any form (oral or injection) will decrease the patient's immune system response and may increase the likelihood of COVID19 infection and symptoms. [facility] History I have reviewed the patient's past medical history: Yes Medical History: Reports:: Hyperlipidemia, Hypertension *Have you ever received a pneumonia vaccine?: Yes *Have you received a flu vaccine this season?: Yes Other Medical History: Reports: Thyroid Disease, Other (Fibromyalgia) Other Surgeries: Yes: Colonoscopy, Hysterectomy-Partial Amputation: No Fractures: No - *Social History Smoking Status: Current every day smoker Tobacco Type: cigarettes # Packs/Day (cigarettes): 1 Alcohol Intake: never Alcohol Intake Frequency:: holidays/special occasions only Substance Use Type: denies use *Occupational Status:: other Housing: house Household Members: other *Travel in the last 8 weeks: None Family Hx:: Unable to obtain [facility] History Medical History: Reports:: Gastroesophageal Reflux Disease(GERD), Hyperlipidemia, Hypertension, Kidney Stones Denies:: Cancer, Diabetes Mellitus Type 1, Diabetes Mellitus Type 2, MRSA, Seizures *Have you ever received a pneumonia vaccine?: Yes *Have you received a flu vaccine this season?: Yes Other Medical History: Reports: Arthritis, Fibromya
== END ==
PROVIDERS: PCP Internal Medicine Adolescent Medicine; Visit Provider Clinical Nurse Specialist Family Health
DX: M46.1 Sacroiliitis, not elsewhere classified (principal)
CPT/HCPCS: 99212

== ENCOUNTER 2020-09-02 13:07 | Day surgery (SDC) | payer OTHER, SELFPAY ==
[2020-09-02 13:32] VITALS: BP 150/57; PULSE 73; RESP 18; TEMP 36.4; O2SAT 73; BMI 27.3
[2020-09-02 14:25] VITALS: BP 137/78; PULSE 79
[2020-09-02 14:26] VITALS: BP 140/74; PULSE 79; RESP 18; O2SAT 98
[2020-09-02 14:30] VITALS: BP 138/64; PULSE 69; RESP 18; O2SAT 98
--- NOTE | 2020-09-02 14:33 | P.PCN_ITS ---
- Procedure Date: 09/02/20 Time: 14:34 Anesthesiologist:: Mark Whitt MD Complications:: None Pre-procedure Diagnosis:: Sacroiliitis Post-procedure Diagnosis:: Same Indications for Procedure:: Patient is a pleasant 54-year-old white female who we have been treating for sacroiliitis. She has done well with previous right SI joint injections however pain relief is not long-lasting. She presents for repeat right SI joint injection under fluoroscopy today. If she does get 60 to 80% relief in her pain symptoms however is not long-lasting she may be a candidate for right SI joint stabilization. Procedure Details:: Right SI joint injection under fluoroscopy Informed consent was obtained and the risks and benefits of the procedure was going to the patient. Patient was taken to the procedure room. Patient was placed prone on the procedure table. The right hip was prepped using ChloraPrep. The skin and subcutaneous tissues were anesthetized using li docaine. I placed a 22-gauge spinal needle into the inferior aspect of the right SI joint. Needle placement was confirmed with dye. After this we injected 5 mL bupivacaine 0.25% and Depo-Medrol 40 mg into the right SI joint. The patient tolerated the procedure well with no complication. Plan and Disposition:: We will follow-up with her and 2 weeks. Will reevaluate symptoms at that time. If she gets significant relief from this injection and it is not long-lasting she may be a good candidate for right SI joint stabilization with cornerloc
== END 2020-09-02 14:31 | disposition home or self-care (01) ==
LOC: SC.PAINP 13:08
PROVIDERS: PCP Internal Medicine Adolescent Medicine; Visit Provider Anesthesiology
DX: M46.1 Sacroiliitis, not elsewhere classified (principal); K21.9 Gastro-esophageal reflux disease without esophagitis; F41.9 Anxiety disorder, unspecified; F32.9 Major depressive disorder, single episode, unspecified; E78.5 Hyperlipidemia, unspecified; Z88.2 Allergy status to sulfonamides; Z88.1 Allergy status to other antibiotic agents; Z88.0 Allergy status to penicillin
CPT/HCPCS: 27096; G0260; J1040; Q9966

== ENCOUNTER → 2020-10-06 13:04 | Outpatient (POV) | payer OTHER, SELFPAY ==
--- NOTE | 2020-10-06 13:27 | HMH.PAINSOAP ---
[facility] Pain Management SOAP Note Subjective:: Patient is a pleasant 60-year-old white female who presents today for follow-up after right SI joint injection. Patient got much more relief up to 80%. She rates her pain a 5 out of 10. She like to repeat this in 1 month I do believe that would benefit her. Patient has a positive Madi test SI joint compression test distraction test and Keke's test on the right side. ROS General: no recent weight change, no fever, no sleep disturbances Respiratory: no cough, no shortness of air, no recurring pulmonary infections Cardiovascular/Peripheral Vascular: No chest pain, No palpitations, no edema, no shortness of breath. Gastrointestinal: no new onset incontinence, normal bowel movements reported Genitourinary: no new onset incontinence Musculoskeletal: SI joint pain Psychiatric: normal mood/ affect Neurological: [denies new onset weakness in extremities], [denies new onset balance issues] Objective:: Physical Exam General: Alert and oriented x3, no acute distress, pleasant and cooperative, [on room air] Lungs: Resps E/U, Symmetrical chest expansion, Eyes: PERRL Musculoskeletal: Flexion and extension of lumbar spine somewhat guarded secondary to pain, deep tendon reflexes normal, strength in upper and lower extremities [5/5], slightly antalgic gait noted Neurological: speech clear, acoustic engineer equal, no gross sensory deficits Assessment:: Sacroiliitis Plan:: We will schedule the patient for right SI joint injection in 1 month. I will follow-up with the patient after this reassess her symptoms at that time she has been instructed to call the office if she has any issues prior to next appointment. Dr. Whitt has reviewed this note and agrees with this plan of care. This note was dictated using voice recognition software and may contain errors or omissions [facility] History I have reviewed the patient's past medical history: Yes Medical History: Reports:: Gastroesophageal Reflux Disease(GERD), Hyperlipidemia, Hypertension, Kidney Stones Denies:: Cancer, Diabetes Mellitus Type 1, Diabetes Mellitus Type 2, MRSA, Seizures *Have you ever received a pneumonia vaccine?: No *Have you received a flu vaccine this season?: No Other Medical History: Reports: Arthritis, Fibromyalgia. Denies: Blood Transfusion Reaction Other Surgeries: Yes: , Hysterectomy-Total, Tubal Ligation, Other (TVT, BOTOX IN BLADDER ) Amputation: No Fractures: No - *Social History Smoking Status: Never smoker Alcohol Intake: never Alcohol Intake Frequency:: holidays/special occasions only Substance Use Type: denies use *Occupational Status:: retired Housing: house Household Members: spouse *Travel in the last 8 weeks: None Family Hx:: Unable to obtain
[2020-10-06 13:55] VITALS: BP 133/74; PULSE 72; RESP 18; O2SAT 98; BMI 27.9
== END ==
PROVIDERS: PCP Internal Medicine Adolescent Medicine; Visit Provider Clinical Nurse Specialist Family Health
DX: M46.1 Sacroiliitis, not elsewhere classified (principal)
CPT/HCPCS: 99212; G0463

== ENCOUNTER 2020-11-07 12:44 | Day surgery (SDC) | payer OTHER, SELFPAY ==
[2020-11-07 13:02] VITALS: BP 163/56; PULSE 70; RESP 18; TEMP 36.4; O2SAT 94; BMI 27.8
[2020-11-07 13:20] VITALS: BP 133/85; PULSE 85; RESP 18; TEMP 36.8; O2SAT 99
--- NOTE | 2020-11-07 13:20 | HMH.PMPROC ---
- Procedure Date: 11/07/20 Time: 13:20 Anesthesiologist:: Pauline Rosado APRN Complications:: None Pre-procedure Diagnosis:: Sacroiliitis Post-procedure Diagnosis:: Same Indications for Procedure:: Patient is a pleasant 60-year-old white female who presents today for right SI joint injection. Patient's had good relief with this in the past. She had 80% relief postinjection. She does have a positive Keke's test SI joint compression test Madi test and distraction test on the right side. Procedure Details:: Informed consent was obtained and the risks and benefits of the procedure were explained to the patient. Patient was taken to the procedure room. Patient was placed prone on the procedure table. The [right] hip was prepped using ChloraPrep as a cleansing solution. The skin and subcutaneous tissues were anesthetized using lidocaine. Using fluoroscopic guidance I placed a 22-gauge spinal needle into the inferior aspect of the [right] SI joint. After this I injected 5 mL bupivacaine 0.25% and Depo-Medrol 40 mg into the [right] SI joint. The patient tolerated the procedure well with no complication. Plan and Disposition:: We will schedule the patient for several weeks to be seen in the office for a follow-up. She has been instructed to call the office if she has any issues prior to her next appointment. Dr. Whitt has reviewed this note and agrees with this plan of care. This note was dictated using voice recognition software and may contain errors or omissions
[2020-11-07 13:21] VITALS: BP 128/85; PULSE 74; RESP 18; O2SAT 98
[2020-11-07 13:36] VITALS: BP 156/65; PULSE 68; RESP 18; O2SAT 94
== END 2020-11-07 13:37 | disposition home or self-care (01) ==
LOC: SC.PAINP 12:47
PROVIDERS: PCP Internal Medicine Adolescent Medicine; Visit Provider Clinical Nurse Specialist Family Health
DX: M46.1 Sacroiliitis, not elsewhere classified (principal); I10 Essential (primary) hypertension; E78.5 Hyperlipidemia, unspecified; K21.9 Gastro-esophageal reflux disease without esophagitis; M79.7 Fibromyalgia; M19.90 Unspecified osteoarthritis, unspecified site; Z88.0 Allergy status to penicillin; Z88.1 Allergy status to other antibiotic agents; Z88.2 Allergy status to sulfonamides; Z91.040 Latex allergy status; Z82.49 Family history of ischemic heart disease and other diseases of the circulatory system
CPT/HCPCS: 27096; G0260; J1040; Q9966

== ENCOUNTER → 2020-12-05 11:34 | Outpatient (POV) | payer OTHER, SELFPAY ==
[2020-12-05 11:35] VITALS: BP 132/74; PULSE 74; RESP 18; O2SAT 98; BMI 28.3
--- NOTE | 2020-12-05 12:15 | P.CONS_ITS ---
[facility] Pain Management SOAP Note Subjective:: Patient is a pleasant 60-year-old white female who presents today for follow-up after right SI joint injection. Patient got good relief with this injection however she is now having left SI joint pain. She does have a positive Madi test SI joint compression test distraction test and Keke's test bilaterally. Patient and I discussed potential compensation in regards to her left SI joint pain. Patient rates her pain a 7 out of 10. We discussed bilateral SI joint injections with the addition of an SI joint belt and Pennsaid to be applied to the affected area. She is agreeable. ROS General: no recent weight change, no fever, no sleep disturbances Respiratory: no cough, no shortness of air, no recurring pulmonary infections Cardiovascular/Peripheral Vascular: No chest pain, No palpitations, no edema, no shortness of breath. Gastrointestinal: no new onset incontinence, normal bowel movements reported Genitourinary: no new onset incontinence Musculoskeletal: SI joint pain Psychiatric: normal mood/ affect, Neurological: [denies new onset weakness in extremities], [denies new onset balance issues] Objective:: Physical Exam General: Alert and oriented x3, no acute distress, pleasant and cooperative, [on room air] Lungs: Resps E/U, Symmetrical chest expansion, Eyes: PERRL Musculoskeletal: Flexion and extension of lumbar spine somewhat guarded secondary to pain, deep tendon reflexes normal, strength in upper and lower extremities [5/5], antalgic gait noted Neurological: speech clear, color receiver equal, no gross sensory deficits Assessment:: Sacroiliitis Plan:: We will plan on bilateral SI joint injections and the addition of an SI joint belt and pen said to be utilized daily to help with inflammation. I will follow-up with her after this reassess her symptoms at that time she has been instructed to call the office if she has any issues prior to her next appointment. Dr. Whitt has reviewed this note and agrees with this plan of care. This note was dictated using voice recognition software and may contain errors or omissions [facility] History I have reviewed the patient's past medical history: Yes Medical History: Reports:: Gastroesophageal Reflux Disease(GERD), Hyperlipidemia, Hypertension, Kidney Stones Denies:: Cancer, Diabetes Mellitus Type 1, Diabetes Mellitus Type 2, MRSA, Seizures *Have you ever received a pneumonia vaccine?: Yes *Have you received a flu vaccine this season?: Yes Other Medical History: Reports: Arthritis, Fibromyalgia. Denies: Blood Transfusion Reaction Other Surgeries: Yes: , Hysterectomy-Total, Tubal Ligation, Other (TVT, BOTOX IN BLADDER ) Amputation: No Fractures: No - *Social History Smoking Status: Never smoker Alcohol Intake: never Alcohol Intake Frequency:: holidays/special occasions only Substance Use Type: denies use *Occupational Status:: employed Housing: house Household Members: spouse *Travel in the last 8 weeks: None Family Hx:: Unable to obtain
== END ==
PROVIDERS: PCP Internal Medicine Adolescent Medicine; Visit Provider Clinical Nurse Specialist Family Health
DX: M46.1 Sacroiliitis, not elsewhere classified (principal)
CPT/HCPCS: 99212; G0463

== ENCOUNTER → 2021-01-02 13:59 | Outpatient (POV) | payer OTHER, SELFPAY ==
[2021-01-02 14:26] VITALS: BP 137/70; PULSE 87; RESP 18; TEMP 36.4; O2SAT 94; BMI 32.8
--- NOTE | 2021-01-02 14:43 | HMH.PAINSOAP ---
[facility] Pain Management SOAP Note Subjective:: Patient is a pleasant 60-year-old white female who presents today for follow-up. Patient had a denial from her Workmen's Comp. for additional injections at this time. Patient and I discussed her progress in regards to recovery from her work injury. Patient still having quite a bit of low back pain. Patient was injured almost a year ago. Patient has not had any diagnostic imaging of her lower back. We discussed an MRI. I do believe given the persistent nature of her pain a MRI would be beneficial of her lumbar spine. She rates her pain today a 7 out of 10. She is having difficulty with activities of daily living. She is tried anti-inflammatories. She is tried physical therapy with no relief. ROS General: no recent weight change, no fever, no sleep disturbances Respiratory: no cough, no shortness of air, no recurring pulmonary infections Cardiovascular/Peripheral Vascular: No chest pain, No palpitations, no edema, no shortness of breath. Gastrointestinal: no new onset incontinence, normal bowel movements reported Genitourinary: no new onset incontinence Musculoskeletal: SI joint pain, back pain Psychiatric: normal mood/ affect Neurological: [denies new onset weakness in extremities], [denies new onset balance issues] Objective:: Physical Exam General: Alert and oriented x3, no acute distress, pleasant and cooperative, [on room air] Lungs: Resps E/U, Symmetrical chest expansion, Eyes: PERRL Musculoskeletal: Flexion and extension of lumbar spine somewhat guarded secondary to pain, deep tendon reflexes normal, strength in upper and lower extremities [5/5], antalgic gait noted Neurological: speech clear, support merchandiser equal, no gross sensory deficits Assessment:: Back pain, SI joint pain Plan:: We will ask her Workmen's Comp. for a lumbar MRI to help determine pathology of her pain pattern. She may need a surgical evaluation. Given the longevity of her pain I do believe further work-up is necessary. Dr. Whitt has reviewed this note and agrees with this plan of care. This note was dictated using voice recognition software and may contain errors or omissions [facility] History I have reviewed the patient's past medical history: Yes Medical History: Reports:: Gastroesophageal Reflux Disease(GERD), Hyperlipidemia, Hypertension, Kidney Stones Denies:: Cancer, Diabetes Mellitus Type 1, Diabetes Mellitus Type 2, MRSA, Seizures *Have you ever received a pneumonia vaccine?: Yes *Have you received a flu vaccine this season?: Yes Other Medical History: Reports: Arthritis, Fibromyalgia. Denies: Blood Transfusion Reaction Other Surgeries: Yes: , Hysterectomy-Total, Tubal Ligation, Other (TVT, BOTOX IN BLADDER ) Amputation: No Fractures: No - *Social History Smoking Status: Never smoker Alcohol Intake: never Alcohol Intake Frequency:: holidays/special occasions only Substance Use Type: denies use *Occupational Status:: employed Housing: house Household Members: spouse *Travel in the last 8 weeks: None Family Hx:: Unable to obtain
== END ==
PROVIDERS: PCP Internal Medicine Adolescent Medicine; Visit Provider Clinical Nurse Specialist Family Health
DX: M54.9 Dorsalgia, unspecified (principal); M46.1 Sacroiliitis, not elsewhere classified
CPT/HCPCS: 99212; G0463

== ENCOUNTER 2021-01-24 16:06 | Emergency (ER) | payer BC, SELFPAY ==
[2021-01-24] VITALS (8 sets, daily range): BP systolic 144–149; BP diastolic 53–71; PULSE 72–77; RESP 16–24; TEMP 36.8; O2SAT 95–98; BMI 28.8
--- NOTE | 2021-01-24 16:08 | HMH.EDGENADL ---
ED Disposition Clinical Impression: Nausea without vomiting Abdominal pain Qualifiers: Abdominal location: right lower quadrant Qualified Code(s): R10.31 - Right lower quadrant pain Disposition: Home, Self-Care Condition on Discharge: Good Instructions: Acute Abdominal Pain Referrals: Trenton Morales MD [Primary Care Provider] - 3 days Time of Disposition: 19:17 - Critical Care Critical Care Time: No Attestation: On , the high probability of a clinically significant, sudden or life threatening deterioration of the following system(s) required my full and direct attention, intervention and personal management. The time I documented below is in addition to time spent performing reported procedures but includes the following listed in this critical care notation. Medical Decision Making - Medical Records Medical records reviewed: Yes: I reviewed the patient's medical records. - Al Inquiry Pt receiving controlled substance: No Vital Signs: 01/24/21 16:08 01/24/21 16:13 01/24/21 16:31 Temperature 98.3 F Temperature Source Oral Pulse Rate 73 74 Pulse Rate [Radial] 75 Respiratory Rate 24 18 Blood Pressure 149/55 H 149/53 H Blood Pressure [Right Arm] 149/55 H Blood Pressure Mean 95 85 Blood Pressure Mean [Right Arm] 86 Blood Pressure Position [Right Arm] Sitting 02 Sat by Pulse Oximetry 97 97 98 Oxygen Delivery Method Room Air Room Air Room Air 01/24/21 17:23 01/24/21 17:30 01/24/21 18:00 Temperature Temperature Source Pulse Rate 77 75 Pulse Rate [Radial] Respiratory Rate 18 Blood Pressure 149/57 H 147/58 H 148/67 H Blood Pressure [Right Arm] Blood Pressure Mean 87 87 94 Blood Pressure Mean [Right Arm] Blood Pressure Position [Right Arm] 02 Sat by Pulse Oximetry 98 96 Oxygen Delivery Method Room Air Room Air 01/24/21 18:30 Temperature Temperature Source Pulse Rate 75 Pulse Rate [Radial] Respiratory Rate 18 Blood Pressure 149/71 H Blood Pressure [Right Arm] Blood Pressure Mean 97 Blood Pressure Mean [Right Arm] Blood Pressure Position [Right Arm] 02 Sat by Pulse Oximetry 95 Oxygen Delivery Method Room Air - Lab Data Lab results reviewed: Yes: I reviewed the patient's lab results. Lab Results 01/24/21 14:25: WBC 9.0, RBC 4.37, Hgb 12.6, Hct 38.9, MCV 89.1, MCH 28.9, MCHC 32.4, RDW 14.1, Plt Count 390, MPV 7.2 L, Neut % (Auto) 41.6, Lymph % (Auto) 51.5 H, [place] % (Auto) 4.8, Eos % (Auto) 1.6, Baso % (Auto) 0.4, Neut # (Auto) 3.7, Lymph # (Auto) 4.6 H, [place] # (Auto) 0.4, Eos # (Auto) 0.2, Baso # (Auto) 0.0, Total Counted 100, Neutrophils % (Manual) 37 L, Lymphocytes % (Manual) 31, Atypical Lymphs % 21.0, Monocytes % (Manual) 10 H, Eosinophils % (Manual) 1, Platelet Estimate Normal, RBC Morphology Normal 01/24/21 14:25: Sodium 138, Potassium 3.3 L, Chloride 102, Carbon Dioxide 24, Anion Gap 15.3 H, BUN 8, Creatinine 0.80, Estimated Creat Clear 70, Estimated GFR 73, Est GFR ( Amer) 88, Glucose 98, Calcium 10.0, Total Bilirubin 0.9, AST 39 H, ALT 33, Alkaline Phosphatase 74, Total Protein 7.9, Albumin 5.1 H, Globulin 2.8, Albumin/Globulin Ratio 1.8 01/24/21 14:25: Lipase 55 01/24/21 16:10: Urine Color Yellow, Urine Appearance Sl cloudy, Urine pH 7.0, Ur Specific [place] <= 1.005, Urine Protein Negative, Urine Glucose (UA) Negative, Urine Ketones 1+, Urine Blood Trace-i, Urine Nitrate Positive, Urine Bilirubin Negative, Urine Urobilinogen 0.2, Ur Leukocyte Esterase 3+ A, Urine RBC 5-10, Urine WBC Tntc, Ur Squamous Epith Cells Tntc, Urine Bacteria 4+ Result diagrams: 01/24/21 14:25 01/24/21 14:25 Orders (Tests/Meds): ED MEDICATIONS Generic Name Dose Route Start Last Admin Trade Name Freq PRN Reason Stop Dose Admin Levofloxacin/Dextrose 750 mg in 150 mls @ 100 mls/hr 01/24/21 17:00 01/24/21 18:18 Levofloxacin 750mg/150ml Premix IV 02/07/21 16:59 100 mls/hr Q24H DELROY Administration Protocol Sodium Chloride 1,000 mls @ 99
--- NOTE | 2021-01-24 16:19 | CT_ITS ---
PROCEDURE INFORMATION: Exam: CT Abdomen And Pelvis With Contrast Exam date and time: 01/24/2021 4:19 PM Age: 60 years old Clinical indication: Abdominal pain; Prior surgery; Patient HX: Abd pain with nausea TECHNIQUE: Imaging protocol: Computed tomography of the abdomen and pelvis with contrast. Radiation optimization: All CT scans at this facility use at least one of these dose optimization techniques: automated exposure control; mA and/or kV adjustment per patient size (includes targeted exams where dose is matched to clinical indication); or iterative reconstruction. Contrast material: ISOVUE; Contrast volume: 75 ml; Contrast route: IV; COMPARISON: CT ABDOMEN PELVIS WO CON 07/13/2019 4:43 AM FINDINGS: Liver: Normal. No mass. Gallbladder and bile ducts: Normal. No calcified stones. No ductal dilation. Pancreas: Normal. No ductal dilation. Spleen: Normal. No splenomegaly. Adrenal glands: Normal. No mass. Kidneys and ureters: Normal. No hydronephrosis. Stomach and bowel: Diverticulosis. Appendix: No evidence of appendicitis. Intraperitoneal space: Unremarkable. No free air. No significant fluid collection. Vasculature: Unremarkable. No abdominal aortic aneurysm. Lymph nodes: Unremarkable. No enlarged lymph nodes. Urinary bladder: Unremarkable as visualized. Reproductive: Hysterectomy. Bones/joints: Unremarkable. No acute fracture. Soft tissues: Unremarkable. IMPRESSION: Diverticulosis.
[2021-01-24 16:23] LABS: Microscopic, Urine URINE MICROSCOPIC (MICROSCOPIC)
[2021-01-24 16:28] LABS: Appearance,Urine SL CLOUDY (Clear); Bilirubin,Urine Negative (Negative); Blood, Urine TRACE-I (Negative); Color,Urine YELLOW (Yellow); Glucose,Urine (UA) Negative (Negative); Ketones,Urine 1+ (Negative); Leukocyte Esterase,Urine 3+ (Negative); Nitrate,Urine POSITIVE (Negative); Protein,Urine Negative (Negative); Specific Gravity, Urine <= 1.005 (1.005-1.030); Urobilinogen,Urine 0.2 EU/dl (0.2)
[2021-01-24 16:37] LABS: Bacteria,Urine 4+ /lpf; Squamous Epithelial Cell,Urine TNTC #/hpf (0-5); WBC,Urine TNTC #/hpf (0-3)
[2021-01-24 16:38] LABS: Basophils % 0.4 % (0.1-2.0); Eosinophils # 0.2 K/mm3 (0.0-0.4); Eosinophils % 1.6 % (0.1-12.0); Hematocrit 38.9 % (37.0-47.0); Hemoglobin 12.6 g/dL (12.2-16.2); Lymphocytes # 4.6 K/mm3 (0.7-4.5); Lymphocytes % 51.5 % (10-50); Mean Corpuscular HGB Conc 32.4 g/dL (31.8-35.4); Mean Corpuscular Hemoglobin 28.9 pg (27.0-31.2); Mean Corpuscular Volume 89.1 fl (81-99); Mean Platelet Volume 7.2 fl (7.4-10.4); Monocytes # 0.4 K/mm3 (0.1-1.0); Monocytes % 4.8 % (1.7-9.3); Neutrophils # 3.7 K/mm3 (1.8-7.8); Neutrophils % 41.6 % (37.0-80.0); Platelet Count 390 K/mm3 (142-424); Red Blood Count 4.37 M/mm3 (4.20-5.40); Red Cell Distribution Width 14.1 % (11.5-17.5)
[2021-01-24 16:39] LABS: MANUAL DIFFERENTIAL MANUAL DIFFERENTIAL (MANUAL DIFF)
[2021-01-24 16:44] LABS: Chloride 102 mmol/L (98-107); Potassium 3.3 mmoL/L (3.5-5.1); Sodium 138 mmol/L (136-145)
[2021-01-24 16:46] LABS: Blood Urea Nitrogen 8 mg/dl (7-17); Creatinine Clearance Estimated 70 mL/min (50-200); Estimated Glomerular Filt Rate 73 ml/min (>60); GFR (African American) 88 ML/MIN (>60); Lipase 55 U/L (23-300)
[2021-01-24 16:47] LABS: Alanine Aminotransferase 33 U/L (12-78); Albumin Level 5.1 g/dl (3.5-5.0); Albumin/Globulin Ratio 1.8 (1.1-1.8); Alkaline Phosphatase 74 U/L (38-126); Anion Gap 15.3 mEq/L (5-15); Aspartate Amino Transferase 39 U/L (14-36); Bilirubin,Total 0.9 mg/dl (0.2-1.3); Carbon Dioxide 24 mmol/L (22.0-30.0); Globulin 2.8 g/dL (1.3-3.2); Glucose 98 mg/dl (74-100); Total Protein,Serum 7.9 g/dl (6.3-8.2)
[2021-01-24 16:55] LABS: Eosinophils % 1 % (0-3); Lymphocytes % 31 % (10-50); Monocytes % 10 % (2-9); Neutrophils % 37 % (42-76); Platelet Estimate Normal; RBC Morphology Normal; Total Cells Counted 100
== END 2021-01-24 20:00 | disposition home or self-care (01) ==
PROVIDERS: Emergency Provider Family Medicine; PCP Internal Medicine Adolescent Medicine
DX: R10.31 Right lower quadrant pain (principal); K21.9 Gastro-esophageal reflux disease without esophagitis; E78.5 Hyperlipidemia, unspecified; I10 Essential (primary) hypertension; M79.7 Fibromyalgia; Z90.79 Acquired absence of other genital organ(s); Z88.0 Allergy status to penicillin; Z88.2 Allergy status to sulfonamides; Z91.040 Latex allergy status; Z79.899 Other long term (current) drug therapy
CPT/HCPCS: 74177; 80053; 81001; 83690; 85007; 85025; 87086; 87088; 87186; 96365; 96367; 96375; 96376; 99283; J1956; J2405; Q9967

== ENCOUNTER → 2021-01-26 10:08 | Outpatient (CLI) | payer OTHER, SELFPAY ==
--- NOTE | 2021-01-26 10:12 | MR_ITS ---
PROCEDURE: MR LUMBAR SPINE WO CON CLINICAL INDICATION: BACK PAIN Injury on 03/07/2020 while trying to help a patient that was falling. Bilateral low back pain that is worse on the rt. Prior CT 03/07/20. COMPARISON: MR MR HEAD/BRAIN WO CON from 10/28/[address] LUMBAR SPINE WO CON from 03/07/2020 TECHNIQUE: Standard multiplanar multiecho sequences are performed without contrast. 3-D MIP and myelographic images are also rendered and reviewed FINDINGS: There is normal alignment. The spinal cord ends at the L1-L2 level. T11-T12: Mild ligamentum hypertrophic change. T12-L1: Unremarkable. L1-L2: Unremarkable. L2-L3: Minimal bulging disc. L3-L4: Minimal bulging disc. L4-5: Minimal bulging disc with mild facet and ligamentum hypertrophic change. Mild bilateral foraminal narrowing slightly greater on the left. L5-S1: Minimal bulging disc. Mild facet hypertrophic change with mild left-sided foraminal narrowing. No extruded herniated disc or bony canal stenosis. No evidence of acute fracture. IMPRESSION: 1. No extruded herniated disc or canal stenosis. 2. Minimal lumbar spondylosis. Please see above for detailed description at each level. Dictated by: Vazquez Rojas MD 01/27/2021 11:02 Vazquez Rojas MD in [place] 01/27/2021 11:02
== END ==
PROVIDERS: PCP Internal Medicine Adolescent Medicine; Visit Provider Clinical Nurse Specialist Family Health
DX: M54.5 Low back pain (principal)
CPT/HCPCS: 72148; 76376

== ENCOUNTER → 2021-02-16 11:40 | Outpatient (POV) | payer OTHER, SELFPAY ==
[2021-02-16 11:49] VITALS: BP 135/63; PULSE 82; RESP 18; O2SAT 96; BMI 28.8
--- NOTE | 2021-02-16 12:01 | HMH.PAINSOAP ---
[facility] Pain Management SOAP Note Subjective:: Patient is a 60-year-old white female who presents today for follow-up. She is being treated for chronic low back pain. Patient recently underwent an MRI of her lumbar spine. She has had SI injections with no relief. She is denied by her Workmen's Comp. for additional injections at this time. Patient reports her pain to be worse with extension and twisting at her waist as well as bending forward. 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 She is unable to lean forward to tie her shoes at this time. She rates her pain a 6 out of 10. She denies any radicular pain at this time. Review of Systems General: No recent weight changes, no fever, no sleep disturbances Respiratory: No cough, no shortness of air, no recurring pulmonary infections Cardiovascular/peripheral vascular: No chest pain, no palpitations, no edema, no shortness of breath Gastrointestinal: No new onset incontinence, normal bowel movements reported Genitourinary: No new onset incontinence Musculoskeletal: Low back pain worse with turning and twisting at her waist, worse with bending forward Psychiatric: Normal mood/affect Neurological: [Denies weakness in extremities], [denies balance issues] Objective:: Physical exam General: Alert and oriented x3, no acute distress, pleasant and cooperative, [on room air] Lungs: Respirations even and unlabored, symmetrical chest expansion Eyes: PERRL Musculoskeletal: Flexion and extension of bar spine somewhat guarded secondary to pain, deep tendon reflexes normal, strength in upper and lower extremities [5/5], [abnormal gait noted] my positive Kemps test Neurological: Speech clear, financial health counselor equal, no gross sensory deficit Assessment:: 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 The patient's MRI report is of facet hypertrophy and lumbar spondylosis. We will schedule the patient for medial branch block/facet joint injections at L4-L5 L5-S1 bilaterally. Her pain is on bilateral low back area. She did try SI injections for which she did not get any relief. We will order the patient Skelaxin 800 mg 1 tablet p.o. twice daily to see if this helps with her pain. She has tried Robaxin and Flexeril which did not give her any relief. Patient is not on any anticoagulation therapy. She does have a positive Kemps test today. She will continue with anti-inflammatories and will continue with a home stretching program. She has tried and failed physical therapy for greater than 6 weeks. We will see her back in the clinic after her injections to reevaluate her symptoms. Risks and benefits of the procedure have been explained to the patient. Patient would like to proceed with the procedure. Dr. Whitt has reviewed this note and agrees with this plan of care. This note was dictated using voice recognition software and make contain errors or omissions. [facility] History I have reviewed the patient's past medical history: Yes Medical History: Reports:: Gastroesophageal Reflux Disease(GERD), Hyperlipidemia, Hypertension, Kidney Stones Denies:: Cancer, Diabetes Mellitus Type 1, Diabetes Mellitus Type 2, MRSA, Seizures *Have you ever received a pneumonia vaccine?: Yes *Have you received a flu vaccine this season?: Yes Other Medical History: Reports: Arthritis, Fibromyalgia. Denies: Blood Transfusion Reaction Other Surgeries: Yes: , Hysterectomy-Total, Tubal Ligation, Other (TVT, BOTOX IN BLADDER ) Amputation: No Fractures: No - *Social History Smoking Status: Never smoker Alcohol Intake: never Alcohol Intake Frequency:: holidays/special occasions only Substance Use Type: denies use *Occupational Status:: unemployed, retired Housing: house Household Members: spouse *Travel in the last 8 weeks: None Family Hx:: Unable to o
== END ==
PROVIDERS: Visit Provider Clinical Nurse Specialist Family Health
DX: M51.36 Other intervertebral disc degeneration, lumbar region (principal); M46.06 Spinal enthesopathy, lumbar region; M47.816 Spondylosis without myelopathy or radiculopathy, lumbar region
CPT/HCPCS: 99212; G0463

== ENCOUNTER → 2021-05-23 16:06 | Outpatient (POV) | payer OTHER, SELFPAY | PROVIDERS: Visit Provider Dermatology | DX: Z00.00 Encounter for general adult medical examination without abnormal findings (principal) ==

== ENCOUNTER → 2021-07-13 09:12 | Outpatient (CLI) | payer BC, SELFPAY ==
[2021-07-13 10:05] LABS: Basophils % 0.6 % (0.1-2.0); Eosinophils # 0.2 K/mm3 (0.0-0.4); Eosinophils % 3.6 % (0.1-12.0); Hematocrit 42.3 % (37.0-47.0); Hemoglobin 13.3 g/dL (12.2-16.2); Lymphocytes # 3.1 K/mm3 (0.7-4.5); Lymphocytes % 56.4 % (10-50); Mean Corpuscular HGB Conc 31.4 g/dL (31.8-35.4); Mean Corpuscular Hemoglobin 29.4 pg (27.0-31.2); Mean Corpuscular Volume 93.7 fl (81-99); Mean Platelet Volume 7.3 fl (7.4-10.4); Monocytes # 0.3 K/mm3 (0.1-1.0); Neutrophils # 1.8 K/mm3 (1.8-7.8); Neutrophils % 33.4 % (37.0-80.0); Platelet Count 393 K/mm3 (142-424); Red Blood Count 4.52 M/mm3 (4.20-5.40); White Blood Count 5.5 K/mm3 (4.8-10.8)
[2021-07-13 10:06] LABS: MANUAL DIFFERENTIAL MANUAL DIFFERENTIAL (MANUAL DIFF)
[2021-07-13 10:17] LABS: Eosinophils % 3 % (0-3); Lymphocytes % 54 % (10-50); Monocytes % 7 % (2-9); Neutrophils % 36 % (42-76); Platelet Estimate Normal; RBC Morphology Normal; Total Cells Counted 100
[2021-07-13 10:47] LABS: Chloride 101 mmol/L (98-107)
[2021-07-13 10:48] LABS: Potassium 4.3 mmoL/L (3.5-5.1); Sodium 138 mmol/L (136-145)
[2021-07-13 10:50] LABS: Alanine Aminotransferase 17 U/L (12-78); Albumin Level 4.4 g/dl (3.5-5.0); Albumin/Globulin Ratio 1.9 (1.1-1.8); Alkaline Phosphatase 73 U/L (38-126); Anion Gap 13.3 mEq/L (5-15); Aspartate Amino Transferase 26 U/L (14-36); Bilirubin,Total 0.6 mg/dl (0.2-1.3); Blood Urea Nitrogen 7 mg/dl (7-17); Carbon Dioxide 28 mmol/L (22.0-30.0); Cholesterol 221 mg/dl (140-200); Estimated Glomerular Filt Rate 101 ml/min (>60); GFR (African American) 123 ML/MIN (>60); Globulin 2.3 g/dL (1.3-3.2); Total Protein,Serum 6.7 g/dl (6.3-8.2); Triglycerides 165 mg/dl (30-150); VLDL Cholesterol 33 mg/dL (0-40)
[2021-07-13 10:51] LABS: Calcium 9.6 mg/dl (8.4-10.2); Chol/HDL Ratio 2.7 (1-3.5); Glucose 84 mg/dl (74-100); HDL Cholesterol 82 mg/dl (40-60); Magnesium 1.8 mg/dl (1.6-2.3)
[2021-07-13 11:02] LABS: Direct LDL Cholesterol 106.57 mg/dL (100-129)
[2021-07-13 11:07] LABS: 25-OH Vitamin D, Total 67.1 ng/mL (30-100)
[2021-07-13 11:20] LABS: Thyroid Stimulating Hormone 0.27 uIU/mL (0.465-4.68)
[2021-07-13 11:24] LABS: Ferritin 56.9 ng/ml (11.1-264)
[2021-07-13 12:24] LABS: Vitamin B12 594 pg/mL (239-931)
== END ==
PROVIDERS: Visit Provider Internal Medicine Adolescent Medicine
DX: E78.5 Hyperlipidemia, unspecified (principal); R25.2 Cramp and spasm; G25.81 Restless legs syndrome
CPT/HCPCS: 36415; 80053; 80061; 82306; 82607; 82728; 83735; 84443; 85007; 85025

== ENCOUNTER → 2021-07-18 11:51 | Outpatient (CLI) | payer BC, SELFPAY ==
[2021-07-18 13:44] LABS: Free Thyroxine Index 2.5 ug/dL (5.93-13.13); T4 (Thyroxine) 9.8 ug/dl (5.53-11.0); Triiodothryronine (T3) Uptake 26 % (23.5-40.5)
[2021-07-18 13:58] LABS: Thyroid Stimulating Hormone 0.36 uIU/mL (0.465-4.68)
[2021-07-19 12:31] LABS: Thyroid Peroxidase Antibodies <8 IU/mL (0-34)
[2021-07-19 15:12] LABS: Thyroglobulin Level <1.0 IU/mL (0.0-0.9)
== END ==
PROVIDERS: Visit Provider Internal Medicine Adolescent Medicine
DX: R79.89 Other specified abnormal findings of blood chemistry (principal)
CPT/HCPCS: 36415; 84436; 84443; 84479; 86376; 86800

== ENCOUNTER → 2021-08-21 13:03 | Outpatient (CLI) | payer BC, SELFPAY ==
--- NOTE | 2021-08-21 13:06 | MM_ITS ---
PROCEDURE INFORMATION: Exam: MG Bilateral Screening 3D Mammography Exam date and time: 08/21/2021 1:06 PM Age: 61 years old Clinical indication: Encounter for screening mammogram for malignant neoplasm of breast TECHNIQUE: Imaging protocol: Bilateral screening tomosynthesis and 2D mammography including computer-aided detection (CAD) when performed. COMPARISON: 1. MG MM DIG SCREENING MAMM BI W/CAD 08/02/2020 10:21 AM 2. MG MM DIG MAMM DX UNILAT LT CAD 01/29/2020 8:05 AM FINDINGS: MAMMOGRAPHY: Breast composition: The breast tissue is composed of scattered areas of fibroglandular density. Mass: None. Architectural distortion: None. Calcifications: No suspicious calcifications. Asymmetric density: None. Skin thickening: None. Axillary adenopathy: None. IMPRESSION: No mammographic evidence of malignancy. Annual screening is recommended unless otherwise clinically indicated. ASSESSMENT: BI-RADS Category 1: Negative
== END ==
PROVIDERS: PCP Internal Medicine Adolescent Medicine; Visit Provider Internal Medicine Adolescent Medicine
DX: Z12.31 Encounter for screening mammogram for malignant neoplasm of breast (principal)
CPT/HCPCS: 77063; 77067

== ENCOUNTER → 2021-08-30 18:11 | Outpatient (CLI) | payer BC, SELFPAY | PROVIDERS: Visit Provider Nurse Practitioner Obstetrics & Gynecology | DX: N39.0 Urinary tract infection, site not specified (principal); B96.20 Unspecified Escherichia coli [E. coli] as the cause of diseases classified elsewhere | CPT/HCPCS: 87086; 87088; 87186 ==

== ENCOUNTER → 2021-09-13 10:45 | Outpatient (CLI) | payer BC, SELFPAY ==
[2021-09-13 11:36] LABS: Chloride 99 mmol/L (98-107); Sodium 137 mmol/L (136-145)
[2021-09-13 11:37] LABS: Potassium 3.8 mmoL/L (3.5-5.1)
[2021-09-13 11:39] LABS: Basophils # 0.1 K/mm3 (0-0.2); Basophils % 2.1 % (0.1-2.0); Eosinophils # 0.2 K/mm3 (0.0-0.4); Eosinophils % 3.9 % (0.1-12.0); Hemoglobin 13.8 g/dL (12.2-16.2); Lymphocytes # 3.2 K/mm3 (0.7-4.5); Lymphocytes % 59.1 % (10-50); Mean Corpuscular HGB Conc 32.9 g/dL (31.8-35.4); Mean Corpuscular Hemoglobin 30.4 pg (27.0-31.2); Mean Corpuscular Volume 92.4 fl (81-99); Mean Platelet Volume 7.4 fl (7.4-10.4); Monocytes # 0.3 K/mm3 (0.1-1.0); Monocytes % 6.2 % (1.7-9.3); Neutrophils # 1.6 K/mm3 (1.8-7.8); Neutrophils % 28.7 % (37.0-80.0); Platelet Count 312 K/mm3 (142-424); Red Blood Count 4.54 M/mm3 (4.20-5.40); Red Cell Distribution Width 13.5 % (11.5-17.5); White Blood Count 5.5 K/mm3 (4.8-10.8)
[2021-09-13 11:40] LABS: Anion Gap 10.8 mEq/L (5-15); Blood Urea Nitrogen 15 mg/dl (7-17); Calcium 9.2 mg/dl (8.4-10.2); Carbon Dioxide 31 mmol/L (22.0-30.0); Estimated Glomerular Filt Rate 63 ml/min (>60); GFR (African American) 77 ML/MIN (>60); Glucose 87 mg/dl (74-100)
[2021-09-13 12:00] LABS: MANUAL DIFFERENTIAL MANUAL DIFFERENTIAL (MANUAL DIFF)
[2021-09-13 12:32] LABS: Triiodothryronine (T3) Uptake 30 % (23.5-40.5)
[2021-09-13 12:33] LABS: Free Thyroxine Index 2.3 ug/dL (5.93-13.13); T4 (Thyroxine) 7.7 ug/dl (5.53-11.0)
[2021-09-13 12:46] LABS: Thyroid Stimulating Hormone 1.86 uIU/mL (0.465-4.68)
[2021-09-13 12:50] LABS: Eosinophils % 2 % (0-3); Lymphocytes % 64 % (10-50); Monocytes % 6 % (2-9); Neutrophils % 25 % (42-76); Platelet Estimate Normal; RBC Morphology Normal; Total Cells Counted 100
== END ==
PROVIDERS: Visit Provider Internal Medicine Adolescent Medicine
DX: E05.90 Thyrotoxicosis, unspecified without thyrotoxic crisis or storm (principal)
CPT/HCPCS: 36415; 80048; 84436; 84443; 84479; 85007; 85025

== ENCOUNTER → 2021-10-11 15:12 | Outpatient (CLI) | payer BC, SELFPAY ==
[2021-10-11 15:15] LABS: Microscopic, Urine URINE MICROSCOPIC (MICROSCOPIC)
[2021-10-11 15:21] LABS: Appearance,Urine CLEAR (Clear); Bilirubin,Urine Negative (Negative); Blood, Urine Negative (Negative); Color,Urine YELLOW (Yellow); Glucose,Urine (UA) Negative (Negative); Ketones,Urine Negative (Negative); Leukocyte Esterase,Urine 2+ (Negative); Nitrate,Urine POSITIVE (Negative); Protein,Urine Negative (Negative); Specific Gravity, Urine 1.015 (1.005-1.030); Urobilinogen,Urine 0.2 EU/dl (0.2)
[2021-10-11 15:43] LABS: WBC,Urine 20-50 #/hpf (0-3)
[2021-10-11 15:44] LABS: Bacteria,Urine 4+ /lpf; RBC,Urine Occasional #/hpf (0-3)
== END ==
PROVIDERS: Visit Provider Nurse Practitioner Obstetrics & Gynecology
DX: N39.0 Urinary tract infection, site not specified (principal); B96.20 Unspecified Escherichia coli [E. coli] as the cause of diseases classified elsewhere
CPT/HCPCS: 81001; 87086; 87088; 87186

== ENCOUNTER → 2022-01-23 13:09 | Outpatient (POV) | payer BC, SELFPAY | PROVIDERS: Visit Provider Dermatology | DX: Z00.00 Encounter for general adult medical examination without abnormal findings (principal) ==

== ENCOUNTER → 2022-09-10 13:21 | Outpatient (CLI) | payer BC, SELFPAY ==
--- NOTE | 2022-09-10 13:24 | MM_ITS ---
PROCEDURE INFORMATION: Exam: MG Bilateral Screening 3D Mammography Exam date and time: 09/10/2022 1:21 PM Age: 62 years old Clinical indication: Screening examination. Her paternal cousin and paternal aunt had breast cancer. TECHNIQUE: Imaging protocol: Bilateral Screening tomosynthesis and 2D mammography including computer-aided detection (CAD) when performed. COMPARISON: 1. MG MM DIG SCREENING MAMM BI W/CAD 08/21/2021 1:00 PM 2. MG MM DIG SCREENING MAMM BI W/CAD 08/02/2020 10:21 AM 3. MG MM DIG MAMM DX UNILAT LT CAD 01/29/2020 8:05 AM 4. MG MM DIG MAMM DX UNILAT LT CAD 08/03/2019 2:13 PM FINDINGS: MAMMOGRAPHY: Breast composition: There are scattered areas of fibroglandular density. Mass: No suspicious mass. Architectural distortion: None. Calcifications: No suspicious calcifications. Asymmetric density: No developing asymmetry. Skin thickening: None. Axillary adenopathy: None. IMPRESSION: No mammographic evidence of malignancy. Annual screening is recommended unless otherwise clinically indicated. ASSESSMENT: BI-RADS Category 1: Negative
== END ==
PROVIDERS: PCP Internal Medicine Adolescent Medicine; Visit Provider Internal Medicine Adolescent Medicine
DX: Z12.31 Encounter for screening mammogram for malignant neoplasm of breast (principal)
CPT/HCPCS: 77063; 77067

== ENCOUNTER → 2022-12-04 13:36 | Outpatient (CLI) | payer MEDICARE, BC, SELFPAY ==
--- NOTE | 2022-12-04 13:44 | ECG_ITS ---
APPROVED REPORT Exam: Resting ECG HR:74 bpm ECG Measurements Heart Rate 74 AXES NC 142 P 60 QRSd 81 QRS 81 QT 374 T 50 QTc 401 Conclusion SINUS RHYTHM MINIMAL ST DEPRESSION [0.025+ mV ST DEPRESSION] BORDERLINE ECG UNCONFIRMED REPORT Electronically signed by : Trenton Morales MD 12/04/2022 20:27:34
[2022-12-04 14:34] LABS: Basophils # 0.1 K/mm3 (0-0.2); Eosinophils # 0.2 K/mm3 (0.0-0.4); Eosinophils % 2.8 % (0.1-12.0); Hematocrit 41.8 % (37.0-47.0); Hemoglobin 13.5 g/dL (12.2-16.2); Lymphocytes # 3.4 K/mm3 (0.7-4.5); Lymphocytes % 45.8 % (10-50); Mean Corpuscular HGB Conc 32.3 g/dL (31.8-35.4); Mean Corpuscular Hemoglobin 28.7 pg (27.0-31.2); Mean Corpuscular Volume 88.8 fl (81-99); Mean Platelet Volume 7.6 fl (7.4-10.4); Monocytes # 0.5 K/mm3 (0.1-1.0); Neutrophils # 3.3 K/mm3 (1.8-7.8); Neutrophils % 44.4 % (37.0-80.0); Platelet Count 424 K/mm3 (142-424); Red Cell Distribution Width 13.8 % (11.5-17.5); White Blood Count 7.5 K/mm3 (4.8-10.8)
[2022-12-04 14:53] LABS: Anion Gap 12.1 mEq/L (5-15); Blood Urea Nitrogen 19 mg/dl (7-17); Calcium 9.4 mg/dl (8.4-10.2); Carbon Dioxide 29 mmol/L (22.0-30.0); Chloride 100 mmol/L (98-107); Estimated Glomerular Filt Rate 63 ml/min (>60); GFR (African American) 76 ML/MIN (>60); Glucose 87 mg/dl (74-100); Potassium 4.1 mmoL/L (3.5-5.1); Sodium 137 mmol/L (136-145)
== END ==
PROVIDERS: PCP Internal Medicine Adolescent Medicine; Visit Provider Surgery
DX: D17.9 Benign lipomatous neoplasm, unspecified (principal); I20.0 Unstable angina; Z01.810 Encounter for preprocedural cardiovascular examination
CPT/HCPCS: 80048; 85025; 93005

== ENCOUNTER 2022-12-06 06:07 | Day surgery (SDC) | payer MEDICARE, BC, SELFPAY ==
[2022-12-06] VITALS (9 sets, daily range): BP systolic 112–160; BP diastolic 49–94; PULSE 75–111; RESP 16–18; TEMP 36.2–36.9; O2SAT 95–98
--- NOTE | 2022-12-06 07:36 | EXP.ANES.CKL ---
[facility] Disclaimer: The information contained in this section may have been updated after the patient was seen, as this information can be updated by other users. Medical History Migraine Surgical History History of back surgery History of History of colonoscopy History of repair of anterior cruciate ligament of left knee Family History Other Family history of COPD (chronic obstructive pulmonary disease) Prostate cancer Social History (Updated 12/06/22 @ 06:39 by Jessica Whitney RN) Smoking Status: Never smoker second hand exposure: No alcohol intake: current substance use type: denies use current occupational status: retired Travel in the last 8 weeks: Inside the [place] household members: spouse housing: house current occupational exposures/hazards: No caffeine: Yes [facility] Anesthesia Checklist Patient Identification Patient Identification: Arm Band Structural Data Admitted From: Home Planned Operative Procedure/s: Excision of Right Back Lipoma Consent for Planned Operative Procedure(s) Verified: Yes Verified Documents: Surgical Consent and History and Physical NPO Status Verified Time NPO: 00:00 Additional verifications Anesthesia Reactions: No Hx Blood Transfusions: No Blood Transfusion Reaction: No Airway Assessment C-Spine Mobility Assessed: Yes TMJ Mobility Assessed: Yes Dentition: Good Dentition Neurological Assessment Level of Consciousness: Awake and Alert Anesthesia Plan Anesthesia Risk discussed: Yes Anesthesia Plan: Verified ASA Class: II Anesthesia Type: General
--- NOTE | 2022-12-06 07:50 | P.OP_ITS ---
Date of procedure: 12/06/22 Pre-op Diagnosis:: Mid/lower back lipoma (4 cm) Post-op Diagnosis:: Same Procedure performed:: Excision of mid/lower back lipoma (4 cm) Surgeon:: Cristian Floyd MD SENIOR BUSINESS CONSULTANT:: Robert Arzate Anesthesia: LMA Estimated blood loss (mL): 10 Operative findings:: Lobulated/multifocal lipomatous lesion excised Operative note:: After informed consent was obtained the patient was taken to the operating room and placed in the supine position. General anesthesia with laryngeal mask airway was achieved and she was then transferred to the left lateral decubitus position. Her mid/lower back was prepped and draped in a sterile fashion. After infiltration local anesthetic an incision was made overlying the palpable lesion. A combination of sharp dissection and electrocautery was utilized to transect into the subcutaneous tissue where a multifocal/lobulated lipomatous lesion was encountered. The lesion was carefully elevated and a combination of electrocautery and blunt dissection was utilized to excise the tissue which was then passed off for pathologic evaluation. Electrocautery was utilized to achieve hemostasis. The deep subcutaneous tissue was reapproximated with interrupted Vicryl and skin was then closed with running 3-0 Monocryl STRATAFIX. Dressings were applied and the patient was transferred to recovery in stable condition. Condition: stable Disposition: PACU Specimens:: 4 cm mid/lower back lipoma Complications:: No immediate
--- NOTE | 2022-12-06 08:00 | P.PNANES_ITS ---
[facility] Anesthesia Record Part I Anesthesia Record I Intake, IV Amount: 700 Estimated blood loss (mL): 5 Urine output (mL): 0 Blood Products used (#): none Blood Pressure: 160/94 SaO2: 95 Pulse Rate: 91 Respiratory Rate: 16 Temperature: 97.1 F Patient is:: Drowsy and Stable Stable to PACU at:: 07:55
--- NOTE | 2022-12-07 07:11 | EXP.ANES.II ---
[facility] Anesthesia Record Part II Anesthesia Record Part II Discharge Time: 08:25 Destination: Surgical Day Care (OP Surgery) PACU nurse assessment reviewed?: Yes Patient Condition:: Good Anesthesia Complications:: None Swallowing reflex intact?: Yes Cyanosis?: No Blood Pressure: 129/49 Pulse Rate: 96 Temperature: 98.3 F Mental Status: Alert & Oriented Pain level:: 0 Nausea and/or vomitting:: None Intake, IV Amount: 0
[2022-12-07 07:12] VITALS: BP 129/49; PULSE 96; TEMP 36.8
== END 2022-12-06 08:59 | disposition home or self-care (01) ==
PROVIDERS: PCP Internal Medicine Adolescent Medicine; Visit Provider Surgery
DX: D17.1 Benign lipomatous neoplasm of skin and subcutaneous tissue of trunk (principal); Z79.899 Other long term (current) drug therapy
CPT/HCPCS: 21931; 88304; 96374; J2405

== ENCOUNTER 2023-10-15 15:56 | Outpatient (CLI) | payer MEDICARE, BC, SELFPAY ==
--- NOTE | 2023-10-15 16:01 | MM_ITS ---
PROCEDURE INFORMATION: Exam: MG Bilateral Screening 3D Mammography Exam date and time: 10/15/2023 3:47 PM Age: 63 years old Clinical indication: Screening examination TECHNIQUE: Imaging protocol: Bilateral Screening tomosynthesis and 2D mammography including computer-aided detection (CAD) when performed. COMPARISON: 1. MG MM DIG SCREENING MAMM BI W/CAD 09/10/2022 1:21 PM 2. MG MM DIG SCREENING MAMM BI W/CAD 08/21/2021 1:00 PM FINDINGS: MAMMOGRAPHY: Breast composition: There are scattered areas of fibroglandular density. Mass: None. Architectural distortion: None. Calcifications: No suspicious calcifications. Asymmetric density: None. Skin thickening: None. Axillary adenopathy: None. IMPRESSION: No mammographic evidence of malignancy. Annual screening is recommended unless otherwise clinically indicated. ASSESSMENT: BI-RADS Category 1: Negative
== END 2023-10-15 23:59 ==
LOC: RAD 15:57
PROVIDERS: PCP Internal Medicine Adolescent Medicine; Visit Provider Internal Medicine Adolescent Medicine
DX: Z12.31 Encounter for screening mammogram for malignant neoplasm of breast (principal)
CPT/HCPCS: 77063; 77067

== ENCOUNTER 2024-01-19 11:35 | Emergency (ER) | payer MEDICARE, BC, SELFPAY ==
[2024-01-19 12:00] VITALS: BP 136/87; PULSE 90; RESP 19; TEMP 36.9; O2SAT 97; BMI 29.9
--- NOTE | 2024-01-19 12:12 | EXP.UTC ---
Discharge Plan Disposition Patient Disposition: Home, Self-Care Condition: Good Prescriptions Prescriptions: New benzonatate 100 mg capsule 100 mg PO TID PRN (Reason: cough) Qty: 30 0RF doxycycline hyclate 100 mg capsule 100 mg PO BID Qty: 20 0RF methylprednisolone [Medrol (Rony)] 4 mg tablets,dose pack See Rx Instructions .Route .COMPLEX 6 Days Qty: 21 0RF Rx Instructions: taper pack; No Action omeprazole 20 mg capsule,delayed release(DR/EC) 20 mg PO DAILY 90 Days Qty: 90 potassium chloride 10 mEq tablet extended release 10 meq PO DAILY 30 Days Qty: 30 buspirone 10 mg tablet 10 mg PO BID duloxetine 60 mg capsule,delayed release(DR/EC) 60 mg PO DAILY ropinirole 1 mg tablet 1 mg PO NEEDED PRN (Reason: leg cramps) tolterodine 4 mg capsule,extended release 24hr 4 mg PO DAILY temazepam 30 mg capsule 30 mg PO HS Patient Comments: TAKE 1 CAPSULE BY MOUTH AT BEDTIME multivitamin 1 EACH tablet 1 each PO DAILY albuterol sulfate 8.5 GM HFA aerosol inhaler 2 puffs IH TID PRN (Reason: SHORTNESS OF AIR ) cyclobenzaprine 10 MG tablet 10 mg PO TID PRN (Reason: Muscle Spasm) 21 Days Qty: 90 0RF celecoxib 200 mg capsule 200 mg PO DAILY bupropion HCl 150 mg tablet extended release 24 hr 150 mg PO DAILY Referrals Follow up/Referrals: Trenton Morales MD [Primary Care Provider] - See instructions Activity Restrictions/Add. Instructions Additional Instructions/Restrictions: *Monitor Temp, Over the counter Motrin or Tylenol as directed/as needed Tylenol every 4 hours and Motrin every 6 hours (as long as your family doctor has told you that you can take it) for fever or pain. and straight to ER if unable to lower temp less than 101.0 after medication given *Warm salt water gargles may help to soothe the throat *Throat Lozenges? *Warm fluids like tea with honey may help to soothe the throat? *Sleep elevated *Humidifier/Vaporizer Take medication as prescribed Follow up IMMEDIATELY for new or worsening symptoms or no Noticeable improvement over the next 48-72 hours. 911 for difficulty breathing or swallowing Clinical Impressions Clinical Impression: Sinusitis Instructions Patient Instructions: DI for Sinusitis, Sinusitis Discharge ED Provider: [facility] [place] HPI General Stated complaint: cough Mode of Arrival: Ambulatory Source of Information: Patient Limitations: No Limitations Time Seen by Provider: 01/19/24 12:13 Description of Symptoms (Recalled from Triage Doc. by RN): Pt's symptoms are sore throat, cough, and sinus pressure. HEENT Symptoms (Recalled from RN notes): Yes Resp Symptoms (Recalled from RN notes): No Skin Symptoms (Recalled from RN notes): No MS Symptoms (Recalled from RN notes): No Functional Status (Recalled from RN notes): n/a History of Present Illness Provider Complaint: Patient states that she has been having sinus pain and pressure, scratchy throat worse in the morning and cough States today the pressure was worse and this morning her throat had a lot of drainage in it so she came in to get checked Related Data Home Medications Medication Instructions Recorded Confirmed omeprazole 20 mg capsule,delayed 20 mg PO DAILY GERD 90 days #90 06/25/18 01/19/24 release caps potassium chloride 10 mEq 10 meq PO DAILY Supplement 30 days 06/25/18 01/19/24 tablet,extended release #30 tabs albuterol sulfate 90 mcg/actuation 2 puffs inhalation TID PRN 01/28/19 01/19/24 aerosol inhaler SHORTNESS OF AIR multivitamin 1 each PO DAILY Supplement 01/28/19 01/19/24 buspirone 10 mg tablet 10 mg PO BID Anxiety 08/30/21 01/19/24 duloxetine 60 mg capsule,delayed 60 mg PO DAILY Depression 08/30/21 01/19/24 release ropinirole 1 mg tablet 1 mg PO NEEDED PRN leg cramps 08/30/21 01/19/24 temazepam 30 mg capsule 30 mg PO HS sleep 10/11/21 01/19/24 tolterodine 4 mg capsule,extended 4 mg PO DAILY bl;adder spasms 10/11/21 01/19/24 release 24 hr bupropion HCl 150 mg 24 hr tablet, 150 mg PO DAILY 01/19/24 01/19/24 extended release celecoxib 200 mg capsule 200 mg PO DAILY 01/19/24 01/19/24 Previous Rx's Medication Instructions Recorded cyclobenzaprine 10 mg tablet 10 mg PO TID PRN Muscle Spasm 21 03/07/20 days #90 tabs benzonatate 100 mg capsule 100 mg PO TID PRN cough #30 caps 01/19/24 doxycycline hyclate 100 mg capsule 100 mg PO BID #20 caps 01/19/24 methylprednisolone 4 mg tablets in See Rx Instructions .Route 01/19/24 a dose pack (Medrol (Rony)) .COMPLEX 6 days #21 tabs Allergies Allergy/AdvReac Type Severity Reaction Status Date / Time gentamicin [GENTAMICIN] Allergy Intermediate I-RASH Verified 01/19/24 12:12 erythromycin base Allergy Unknown Rash Verified 01/19/24 12:12 [From Tee-Tab] Sulfa (Sulfonamide Allergy Unknown Rash Verified 01/19/24 12:12 Antibiotics) trimethoprim Allergy Unknown Rash Verified 01/19/24 12:12 latex Allergy Rash Verified 01/19/24 12:12 Penicillins Allergy Rash Verified 01/19/24 12:12 Worker's Comp Is this a Worker's Comp case?: No [facility] Disclaimer: The information contained in this section may have been updated after the patient was seen, as this information can be updated by other users. Medical History Migraine Surgical History History of back surgery History of History of colonoscopy History of repair of anterior cruciate ligament of left knee Family History Other Family history of COPD (chronic obstructive pulmonary disease) Prostate cancer Social History Smoking Status: Never smoker second hand exposure: No alcohol intake: current alcohol intake frequency: holidays/special occasions only substance use type: denies use current occupational status: retired Travel in the last 8 weeks: Inside the [place] household members: spouse housing: house current occupational exposures/hazards: No caffeine: Yes ROS Obtained: Yes All systems reviewed & no additional complaints except as documented and Yes Systems reviewed as appropriate & no additional complaints except as documented Constitutional Constitutional: Reports system reviewed and no additional complaints, except as documented, Reports as per HPI and Reports headache(s) ENT Ears, Nose, Mouth, and Throat: Reports system reviewed and no additional complaints, except as documented, Reports as per HPI, Reports headache(s), Reports sinus pain, Reports sinus pressure and Reports sore throat Cardiovascular Cardiovascular: Reports system reviewed and no additional complaints, except as documented and Reports as per HPI Respiratory Respiratory: Reports system reviewed and no additional complaints, except as documented and Reports as per HPI Neurologic Neurologic: Reports headache(s) Physical Exam General General appearance: alert and in no apparent distress ENT ENT exam: Present mucous membranes moist Expanded ENT Exam Nose exam: Present sinus tenderness Throat exam: Present other (PND noted ) Respiratory Respiratory exam: Present normal lung sounds bilaterally; Absent respiratory distress or wheezes Cardiovascular Cardiovascular exam: Present regular rate, normal rhythm and normal heart sounds Neurological Exam Neurological exam: Present alert, oriented X3 and normal gait Medical Decision Making Al Inquiry Pt receiving controlled substance: No Al was queried for this patient: No Vital Signs: 01/19/24 12:00 Temperature 98.5 F Temperature Source Oral Pulse Rate [Right Radial] 90 Respiratory Rate 19 Blood Pressure [Right Arm] 136/87 Blood Pressure Mean [Right Arm] 103 Blood Pressure Source [Right Arm] Automatic Cuff Blood Pressure Position [Right Arm] Sitting 02 Sat by Pulse Oximetry 97 Oxygen Delivery Method Room Air Medical Decision Narrative: Medication discussed with pharmacy
[2024-01-19 12:47] VITALS: BP 136/87; PULSE 90; RESP 19; TEMP 36.8; O2SAT 97
== END 2024-01-19 12:47 | disposition home or self-care (01) ==
PROVIDERS: Emergency Provider Nurse Practitioner; PCP Internal Medicine Adolescent Medicine
DX: J01.90 Acute sinusitis, unspecified (principal); R05.9 Cough, unspecified; R07.0 Pain in throat
CPT/HCPCS: 99204; 99212; G0463

== ENCOUNTER 2024-06-12 13:00 | Outpatient (CLI) | payer MEDICARE, BC, SELFPAY ==
--- NOTE | 2024-06-12 13:06 | XR_ITS ---
FINAL REPORT CLINICAL HISTORY: PAIN x 2 months..no trauma FINDINGS: LEFT HIP 3 views of the left hip are obtained. There is no acute fracture or dislocation. Visualized joint spaces are normally aligned. There is no acute soft tissue abnormality. IMPRESSION: No acute bony abnormality. Reviewed, Interpreted and Dictated by Dwight Bernal MD Transcribed by Gabriella Flores Authenticated and [facility]
== END 2024-06-12 23:59 | disposition home or self-care (01) ==
LOC: RAD 13:03
PROVIDERS: PCP Internal Medicine Adolescent Medicine; Visit Provider Nurse Practitioner Family
DX: M25.552 Pain in left hip (principal)
CPT/HCPCS: 73502

== ENCOUNTER 2024-08-27 12:42 | Outpatient (CLI) | payer MEDICARE, BC, SELFPAY ==
--- NOTE | 2024-08-27 12:46 | MR_ITS ---
FINAL REPORT CLINICAL HISTORY: HIP PAIN XMONTHS. PAIN WHEN GETTING UP COMPARISON: None FINDINGS: Multiplanar MR imaging of the left hip was performed without contrast. There is no evidence of fracture or dislocation. There is no evidence of avascular necrosis. No bony mass is identified. There is a questionable focal tear of the anterior superior labrum. No significant joint effusion is seen. The tendons are intact. The musculature is intact. No soft tissue mass or cyst is identified. IMPRESSION: Questionable focal tear anterior superior labrum. Reviewed, Interpreted and Dictated by Manpreet Ramirez III, MD Transcribed by Elizabeth Dent Authenticated and [facility]
== END 2024-08-27 23:59 | disposition home or self-care (01) ==
LOC: RAD 12:43
PROVIDERS: PCP Internal Medicine Adolescent Medicine; Visit Provider Nurse Practitioner Family
DX: M25.552 Pain in left hip (principal)
CPT/HCPCS: 73721

== ENCOUNTER 2024-11-05 14:00 | Outpatient (CLI) | payer MEDICARE, BC, SELFPAY ==
--- NOTE | 2024-11-05 14:03 | MM_ITS ---
PROCEDURE INFORMATION: Exam: MG Bilateral Screening 3D Mammography Exam date and time: 11/05/2024 2:09 PM Age: 64 years old Clinical indication: Screening mammogram TECHNIQUE: Imaging protocol: Bilateral Screening tomosynthesis and 2D mammography including computer-aided detection (CAD) when performed. COMPARISON: 1. MG MM DIG SCREENING MAMM BI W/CAD 10/15/2023 3:47 PM 2. MG MM DIG SCREENING MAMM BI W/CAD 09/10/2022 1:21 PM 3. MG MM DIG SCREENING MAMM BI W/CAD 08/21/2021 1:00 PM 4. MG MM DIG SCREENING MAMM BI W/CAD 08/02/2020 10:21 AM FINDINGS: MAMMOGRAPHY: Breast composition: There are scattered areas of fibroglandular density. Mass: None. Architectural distortion: No new or suspicious architectural distortion. Calcifications: No new or suspicious calcifications are present Asymmetric density: No new or suspicious asymmetric density is present Skin thickening: None. Axillary adenopathy: None. IMPRESSION: No mammographic evidence of malignancy. Recommend annual screening mammography unless otherwise clinically indicated. ASSESSMENT: BI-RADS category 1: Negative.
== END 2024-11-05 23:59 | disposition home or self-care (01) ==
LOC: RAD 14:01
PROVIDERS: PCP Internal Medicine Adolescent Medicine; Visit Provider Nurse Practitioner Family
DX: Z12.31 Encounter for screening mammogram for malignant neoplasm of breast (principal)
CPT/HCPCS: 77063; 77067

== ENCOUNTER 2024-11-30 09:27 | Outpatient (CLI) | payer MEDICARE, BC, SELFPAY ==
--- NOTE | 2024-11-30 09:30 | XR_ITS ---
FINAL REPORT TECHNIQUE: Bone mineral density was calculated of the lumbar spine and hip. CLINICAL HISTORY: SCREENING COMPARISON: None FINDINGS: Using L1-4, the bone mineral density of the spine is 0.815 g/cm2, corresponding to T-score of -2.1. Using the left hip, the bone mineral density of the femoral neck is 0.852 g/cm2, corresponding to a T-score of -0.7. Using the right hip, the bone mineral density of the right femoral neck is 0.757 g/cm?, corresponding to a T-score of -0.8. NOTE: T-score: Standard deviation compared with peak bone mass of young adult mean. *Following the recommendations of the International Society of Bone densitometry, classification of hip BMD is based on the lower of two T-scores; total hip or femoral neck. IMPRESSION: Diminished bone mineral density of the lumbar spine consistent with osteopenia. Normal bone mineral density of the bilateral hips. Reviewed, Interpreted and Dictated by Dwight Bernal MD Transcribed by Yessi Shukla Authenticated and [facility] [place] [place]
== END 2024-11-30 23:59 | disposition home or self-care (01) ==
LOC: RAD 09:28
PROVIDERS: PCP Internal Medicine Adolescent Medicine; Visit Provider Nurse Practitioner Family
DX: M85.88 Other specified disorders of bone density and structure, other site (principal)
CPT/HCPCS: 77080